=== PATIENT | male | born 1945 | race Caucasian/White ===

== ENCOUNTER 2025-09-08 17:16 | Inpatient (IN) | payer OTHER, SELFPAY ==
--- NOTE | ~2025-09-08 | US_ITS ---
EXAMINATION: BILATERAL CAROTID ULTRASOUND WITH DOPPLER HISTORY: Confirm carotid occlusion COMPARISON: Previous head and neck CTA September 08, 2025 TECHNIQUE: Real time and Color and Spectral doppler ultrasonography of the carotid and vertebral arteries was performed in multiple planes. FINDINGS: VERTEBRAL FLOW DIRECTION: No flow can be documented in the right vertebral artery. The left vertebral artery is patent with antegrade flow. PEAK SYSTOLIC VELOCITIES (in cm/sec): RIGHT: There is significant calcified plaque is seen at the right carotid bulb and proximal ICA. CCA: Prox: Peak systolic velocity 87 cm/s Dist: Peak systolic velocity 93 cm/s ICA: Prox: Peak systolic velocity 386 centimeters per second and end-diastolic velocity 82 cm/s Mid: Peak systolic velocity 176 cm/s and end-diastolic velocity 13.2 cm/s Dist: Peak systolic velocity 60 cm/s and end-diastolic velocity 21 cm/s. ICA/CCA Ratio: 4.2 ECA: Peak systolic velocity 220 cm/s. LEFT: Calcified plaque at the left carotid bulb and calcified and noncalcified plaque in the left proximal ICA and ECA CCA: Prox: Peak systolic velocity 73 cm/s Dist: Peak systolic velocity 101 cm/s ICA: Prox: Peak systolic velocity 117 and end-diastolic velocity 31 cm/s Mid: Peak systolic velocity 215 and end-diastolic velocity 50 cm/s Dist: Peak systolic velocity 94 and end-diastolic velocity 17 cm/s ICA/CCA Ratio: 1.2 ECA: Peak systolic velocity 355 cm/s Both subclavian arteries are patent with normal peak systolic velocities, 1 44 cm/s on the right and 1 27 cm/s on the left. US/US carotid duplex BI IMPRESSION: Right: Significant greater than 80% right ICA stenosis. Suspect occluded right vertebral artery. Left: Mild less than 50% left ICA stenosis. Left ECA stenosis. Patent left vertebral artery. Findings were communicated by tiger paulette to Dr. Rock 09/10/2025 at 5:00 PM Electronically signed by: Adalgisa Vaughan MD 09/10/2025 05:00 PM [facility]
--- NOTE | ~2025-09-08 | CT_ITS ---
CLINICAL HISTORY: visual field deficit, possible bleed CT head without contrast Comparison: None Findings: No intracranial mass, midline shift, hydrocephalus, or acute hemorrhage. There is cytotoxic edema involving left occipital lobe (2; 24-33, approaching fluid attenuation at 19 Hounsfield units), compatible with subacute infarct. No other CT evidence of acute ischemia. Mild chronic microangiopathic white matter ischemic changes are present.. Visualized paranasal sinuses and mastoid air cells normal. Orbits unremarkable. No skull fracture Impression: 1. Subacute appearing left occipital infarct as described above. 2. No other acute intracranial abnormalities or evidence of intracranial hemorrhage. This document has been electronically signed by: Darek Brown MD on 09/08/2025 17:52:51
--- NOTE | ~2025-09-08 | CT_ITS ---
CLINICAL HISTORY: vision changes Exam: Contrast-enhanced CTA head and neck with multiplanar reformats. Comparison: Same-day CT brain. Findings: CTA neck: There is good opacification of the bilateral anterior intracranial arterial circulations. Right vertebral artery is occluded from its origin up to the level of the distal V4 intradural segment which reveals reflux opacification from the left side, and opacifies the left PICA artery. This is as likely a chronic finding. The distal left posterior cerebral artery is attenuated at the level of the left ambient cistern (6; 331 -312). Otherwise good opacification of the posterior intracranial arterial circulation is present. No other large vessel occlusion or significant intracranial arterial stenoses. No other definable truncation of flow. No evidence of aneurysm or vascular malformation. No venous thrombosis or enhancing parenchymal lesions. CTA neck: Aortic arch reveals calcific athero sclerosis. There appears to be hemodynamically significant stenoses of the origin of the left common carotid artery from the aortic arch (for example, 6; 1125, also seen on 7; 113). More distally bilateral common carotid arteries are patent. There is severe appearing stenoses (likely 99%, versus short segmental occlusion) of the proximal right internal carotid artery (6; 750-715, also seen on 9; 29). No tandem right ICA stenoses. There is significant stenoses of the proximal left internal carotid artery, likely 60-70% severity (6; 714-685, also seen on 7; 98). No tandem left ICA stenoses appreciated. Left vertebral artery is patent. Right vertebral artery is occluded from its origin to the level of the distal V4 segment as described above. Visualized pulmonary apices reveal moderate centrilobular emphysematous disease. No neck masses or adenopathy. No destructive osseous lesions. Impression: 1. 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 This has likely a chronic finding. 2. Attenuation of the distal left posterior cerebral artery at the level of the left ambient cistern, in keeping with left occipital infarcts seen on same day CT brain. 3. 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 4. Hemodynamically significant appearing stenoses of the proximal left vertebral artery (likely 60-70% severity). This document has been electronically signed by: Darek Brown MD on 09/08/2025 18:19:40
[2025-09-08 17:18] VITALS: BP 153/130; PULSE 73; RESP 16; TEMP 36.7; O2SAT 98; BMI 24.2
--- NOTE | 2025-09-08 17:21 | ED.GENADULT ---
HPI - General Adult General Chief complaint: Neuro Symptoms/Deficit Stated complaint: severe headache, blurred vision Time Seen by Provider: 09/08/25 17:36 History of Present Illness ED Provider: Dr. Alvarado HPI narrative: 80 y/o M; PMH HTN, HLD; patient presents from home reporting approx 3 days of complete loss of vision in the right eye. Initially associated with a headache which has since resolved. He has also noticed poor balance during this time. He denies: falls or trauma, nausea/vomiting, SOB, cough/congestion, chest pain, abdominal pain. He tried taking advil and tylenol for the headache, then noticed dark stools. Related Data Allergies Allergy/AdvReac Type Severity Reaction Status Date / Time Penicillins Allergy Anaphylaxis Verified 09/08/25 17:24 Review of Systems Review of Systems: Yes all other systems are reviewed and are negative Neurologic: Denies Sensory deficit (Neuro) [facility] Past Medical History Attestation statement: The following information was validated with the patient. Source: unable to obtain Social History Social History Advance Directives: No Advance Directives Information Provided: Yes Do you have a plan to hurt others: No Plan Physical Exam ED Vital Signs: Vital Signs - 24 hr 09/08/25 17:18 09/08/25 18:00 Temperature 98.1 F 98.3 F Pulse Rate 73 61 Respiratory Rate 16 16 Blood Pressure 153/130 H 125/64 Pulse Oximetry 98 97 Oxygen Delivery Method Room Air Room Air BMI result Body Mass Index 24.2 Patient is afebrile, initially hypertensive but this resolved without intervention. Const General: cooperative and no acute distress Orientation/consciousness: patient oriented x3 HENMT Head: Yes normal to inspection and Yes atraumatic Eyes General: appearance normal, both eyes and all related structures Pupils: Equal, round and reactive pupils present EOM: EOMs intact bilaterally Neck Neck: Yes normal visual inspection, Yes full ROM, Yes supple and No tender Chest Chest palpation & inspection: normal inspection of the chest and normal palpation of entire chest wall Resp Effort & Inspection: normal respiratory effort, able to speak in complete sentences and no cough Auscultation: clear to auscultation bilaterally Cardio Rate: regular rate Rhythm: regular rhythm Peripheral pulses: Peripheral pulses 2+ throughout GI Inspection: Yes normal to inspection, No Abdominal wall edema and No distended Palpation (GI): Soft to palpation, not firm, nontender, no guarding and not rigid Auscultation: normal bowel sounds Back/Spine/Pelvis Back: No back tenderness Neuro Other: Complete loss of right visual puentes Intact left upper visual field Loss of left lower visual field Finger to nose right side with + past pointing Finger to nose left side intact General: patient oriented x3 Cranial nerves: Yes Equal, round and reactive pupils present Motor exam (neuro): 5/5 motor strength present throughout Sensory Exam: No Sensory deficit (Neuro) NIH Stroke Scale Internal: Initial- Upon Arrival Level of Consciousness: Alert Level of Consciousness Questions: Answers both questions correctly Level of Consciousness Commands: Performs both tasks correctly Best Gaze: Normal Visual: Complete hemianopia Facial Palsy: Normal Motor Arm (Right): No drift Motor Arm (Left): No drift Motor Leg (Right): No drift Motor Leg (Left): No drift Limb Ataxia: Absent Sensory: Normal Best Language: No aphasia Dysarthia: Normal Extinction and Inattention: No abnormality Score: 2 Course Course Course Narrative: Rapid medical examination performed in triage by Mehreen West PA-C: Patient is an 80 year old assigned male at presenting to the emergency department with visual deficit on the right side and dark stools. Patient states that over the last 3 days he has lost certain visual puentes on his right eye. 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 EKG, labs, and imaging ordered. [employer] aware. Reevaluation(s) Reevaluation #1: I was made aware of this patient after CT Head was performed, I requested addition of CTA Head/Neck which was added on. CT scans reviewed. CT Head demonstrates subacute left occipital infarct. CTA Head/Neck demonstrates occlusion of the right vertebral artery from its origin to the level of the distal V4 segment. Opacification of the right PICA. Patient started on protonix for concern for NSAID induced melena. NIHSS 2. Patient is unfortunately well outside TNK or thrombectomy window. Labs reviewed. Cr 2.02, unknown baseline. Providing 1L IVF. Hgb 12.4, unknown baseline. No significant leukocytosis. Will start on baby ASA. Plan: Admit to hospitalist Condition: Stable Medications Administered Discontinued Medications Generic Name Dose Route Start Last Admin Trade Name Freq PRN Reason Stop Dose Admin Iohexol 100 ml 09/08/25 17:50 09/08/25 17:51 Iohexol 350 Mg/Ml 100 Ml Infus..Btl IV 09/08/25 17:51 75 ml ONCE ONE Administration Medical Decision Making Lab Data 09/08/25 19:13 09/08/25 19:13 Labs: Lab Results 09/08/25 Range/Units 19:13 WBC 5.0 (4.8-10.8) X10*3/uL RBC 3.88 L (4.60-5.80) X10*6/uL Hgb 12.4 L (14.0-18.0) g/dl Hct 36.7 L (42.0-52.0) % MCV 94.6 (80.0-98.0) fL MCH 32.0 (27.0-33.0) pg MCHC 33.8 (31.0-36.0) g/dl RDW 13.6 (11.0-16.0) % Plt Count 116 L (160-400) X10*3/uL MPV 10.7 (9.4-12.4) fL Immature Gran % (Auto) 0.4 (0.0-0.4) % Neut % (Auto) 48.3 (45-73) % Lymph % (Auto) 38.4 (20-40) % [place] % (Auto) 10.5 (2-11) % Eos % (Auto) 1.8 (0-4) % Baso % (Auto) 0.6 (0-2) % Lymph # (Auto) 1.9 (1.2-4.9) X10*3/uL [place] # (Auto) 0.5 (0.1-1.2) X10*3/uL Eos # (Auto) 0.1 (0.0-0.4) X10*3/uL Baso # (Auto) 0.0 (0.0-0.2) X10*3/uL Abs Immat Gran (auto) 0.02 (0.00-0.03) X10*3/uL Absolute Neuts (auto) 2.4 (2.0-8.3) x10*3/uL Absolute Nucleated RBC 0.000 (0.0-0.012) X10*3/uL Nucleated RBC % (auto) 0.0 (0.0-0.2) /100WBC PT 13.2 (11.2-13.5) SEC INR 1.1 (0.9-1.1) Sodium 138 (135-145) mmol/L Potassium 5.0 (3.3-5.1) mmol/L Chloride 109 H (96-108) mmol/L Carbon Dioxide 21 L (22-29) mmol/L Anion Gap 13 (12-20) BUN 22 H (9-16) mg/dL Creatinine 2.02 H (0.5-1.4) mg/dL Estim Creat Clear Calc 31.4 Estimated GFR 32 Random Glucose 71 (60-115) mg/dL Calcium 9.0 (8.4-10.2) mg/dL Magnesium 2.2 (1.6-2.6) mg/dL Total Bilirubin 0.5 (0.0-1.0) mg/dL AST 23 (5-37) U/L ALT 15 (0-40) U/L Alkaline Phosphatase 45 (39-117) U/L Troponin I High Sens < 2.7 (<3.5-35.0) ng/L Total Protein 7.0 (6.5-8.0) g/dL Albumin 3.9 (3.5-5.0) g/dL Independent Interpretation I performed an independent interpretation of an: EKG Interpretation: I independently interpreted the EKG as NSR 66BPM with normal intervals. Radiology Impression Discussion of test interpretation with radiology: I have reviewed the radiologist's reading. Radiologist Impression: CLINICAL HISTORY: vision changes Exam: Contrast-enhanced CTA head and neck with multiplanar reformats. Comparison: Same-day CT brain. Findings: CTA neck: There is good opacification of the bilateral anterior intracranial arterial circulations. Right vertebral artery is occluded from its origin up to the level of the distal V4 intradural segment which reveals reflux opacification from the left side, and opacifies the left PICA artery. This is as likely a chronic finding. The distal left posterior cerebral artery is attenuated at the level of the left ambient cistern (6; 331 -312). Otherwise good opacification of the posterior intracranial arterial circulation is present. No other large vessel occlusion or significant intracranial arterial stenoses. No other definable truncation of flow. No evidence of aneurysm or vascular malformation. No venous thrombosis or enhancing parenchymal lesions. CTA neck: Aortic arch reveals calcific athero sclerosis. There appears to be hemodynamically significant stenoses of the origin of the left common carotid artery from the aortic arch (for example, 6; 1125, also seen on 7; 113). More distally bilateral common carotid arteries are patent. There is severe appearing stenoses (likely 99%, versus short segmental occlusion) of the proximal right internal carotid artery (6; 750-715, also seen on 9; 29). No tandem right ICA stenoses. There is significant stenoses of the proximal left internal carotid artery, likely 60-70% severity (6; 714-685, also seen on 7; 98). No tandem left ICA stenoses appreciated. Left vertebral artery is patent. Right vertebral artery is occluded from its origin to the level of the distal V4 segment as described above. Visualized pulmonary apices reveal moderate centrilobular emphysematous disease. No neck masses or adenopathy. No destructive osseous lesions. Impression: 1. 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 This has likely a chronic finding. 2. Attenuation of the distal left posterior cerebral artery at the level of the left ambient cistern, in keeping with left occipital infarcts seen on same day CT brain. 3. 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 4. Hemodynamically significant appearing stenoses of the proximal left vertebral artery (likely 60-70% severity). This document has been electronically signed by: Darek Brown MD on 09/08/2025 18:19:40 CLINICAL HISTORY: visual field deficit, possible bleed CT head without contrast Comparison: None Findings: No intracranial mass, midline shift, hydrocephalus, or acute hemorrhage. There is cytotoxic edema involving left occipital lobe (2; 24-33, approaching fluid attenuation at 19 Hounsfield units), compatible with subacute infarct. No other CT evidence of acute ischemia. Mild chronic microangiopathic white matter ischemic changes are present.. Visualized paranasal sinuses and mastoid air cells normal. Orbits unremarkable. No skull fracture Impression: 1. Subacute appearing left occipital infarct as described above. 2. No other acute intracranial abnormalities or evidence of intracranial hemorrhage. This document has been electronically signed by: Darek Brown MD on 09/08/2025 17:52:51 Discharge Plan Discharge Clinical Impression: Cerebrovascular accident Patient Disposition: Admitted As Inpatient Print Language: Korean
--- NOTE | 2025-09-08 17:23 | ECG_ITS ---
Test Reason : WEAKNESS Blood Pressure : */* mmHG Vent. Rate : 66 BPM Atrial Rate : 66 BPM P-R Int : 194 ms QRS Dur : 96 ms QT Int : 394 ms P-R-T Axes : 63 7 67 degrees QTcB Int : 413 ms Normal sinus rhythm Normal ECG No previous ECGs available Referred By: Mehreen West Electronically Signed By: DANY REN MD
[2025-09-08] MEDS: iohexoL 350 MG/ML 100 ML INFUS..BTL IV (17:51)
[2025-09-08 18:00] VITALS: BP 125/64; PULSE 61; RESP 16; TEMP 36.8; O2SAT 97
[2025-09-08 19:18] LABS: MANUAL DIFF FLAG NO
[2025-09-08 19:32] LABS: INTERNATIONAL NORM RATIO 1.1 (0.9-1.1); Prothrombin Time 13.2 SEC (11.2-13.5)
[2025-09-08 19:34] LABS: Alanine Aminotransferase 15 U/L (0-40); Albumin Level 3.9 g/dL (3.5-5.0); Alkaline Phosphatase 45 U/L (39-117); Anion Gap 13 (12-20); Aspartate Amino Transferase 23 U/L (5-37); Blood Urea Nitrogen 22 mg/dL (9-16); Calcium 9.0 mg/dL (8.4-10.2); Carbon Dioxide 21 mmol/L (22-29); Chloride 109 mmol/L (96-108); Creatinine Clr Calc Pharmacy 31.4; Estimated Glomerular Filt Rate 32; Magnesium 2.2 mg/dL (1.6-2.6); Potassium 5.0 mmol/L (3.3-5.1); Sodium 138 mmol/L (135-145); Total Protein 7.0 g/dL (6.5-8.0)
[2025-09-08 19:37] LABS: Hematocrit 36.7 % (42.0-52.0); Hemoglobin 12.4 g/dl (14.0-18.0); Imm Gran Abs Auto 0.02 X10*3/uL (0.00-0.03); Imm Gran Pct Auto 0.4 % (0.0-0.4); Lymphocytes Absolute Auto 1.9 X10*3/uL (1.2-4.9); Mean Corpuscular HGB Conc 33.8 g/dl (31.0-36.0); Mean Corpuscular Hemoglobin 32.0 pg (27.0-33.0); Mean Corpuscular Volume 94.6 fL (80.0-98.0); NRBC Abs Auto 0.000 X10*3/uL (0.0-0.012); NRBC Pct Auto 0.0 /100WBC (0.0-0.2); Platelet Count 116 X10*3/uL (160-400); Red Blood Count 3.88 X10*6/uL (4.60-5.80); White Blood Count 5.0 X10*3/uL (4.8-10.8)
[2025-09-08 19:41] LABS: Troponin-I High Sensitivity < 2.7 ng/L (<3.5-35.0)
[2025-09-08 20:08] VITALS: BP 150/64; PULSE 63; RESP 14; TEMP 36.9; O2SAT 96
--- NOTE | 2025-09-08 20:29 | PM.IMHP ---
History of Present Illness Date of Service: 09/08/25 Chief Complaint: Right partial vision loss, gait problem An 80-year-old man with a history of hypertension and hyperlipidemia, not on any antiplatelet or statin therapy, who presented reporting waking up over 48 hours ago with a severe left-sided headache, loss of vision in the right eye, and unsteady gait. No preceding trauma, nausea, vomiting, or focal weakness reported. 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 [facility] He uses a walker at home where he lives by himself but reports having much support there and does not want to go to SNF after this hospital stay. Initial imaging at presentation revealed a subacute left occipital infarct on CT head. CTA demonstrated occlusion of the right vertebral artery from its origin to the distal V4 segment with opacification of the right PICA, consistent with chronic changes. There were no findings suggestive of large vessel occlusion requiring acute intervention. On arrival, the patient was hypertensive, but blood pressure normalized without pharmacologic intervention. Labs notable for creatinine 2.02 mg/dL (baseline unknown). He received 1 L of IV fluids for renal protection following contrast administration. Aspirin was initiated for secondary stroke prevention. He remains hemodynamically stable, without worsening neurological deficits. Admitted for further evaluation and treatment. Review of Systems Review of Systems: No fever, chills or weakness No chest pain, palpitation No shortness of breath or coughing No abdominal pain, nausea or vomiting No urinary symptoms No any rash or wounds PMFSH Medical History HLD (hyperlipidemia) HTN (hypertension) Social History Advance Directives: No Advance Directives Information Provided: Yes Do you have a plan to hurt others: No Plan Meds Allergies Allergy/AdvReac Type Severity Reaction Status Date / Time Penicillins Allergy Anaphylaxis Verified 09/08/25 17:24 Active Medications: Current Medications Sodium Chloride (Ns) 1,000 mls @ 999 mls/hr IV .Q1H1M GHASSAN Stop: 09/08/25 20:45 Last Admin: 09/08/25 20:00 Dose: 999 mls/hr Physical Exam Vital Signs and Narrative: Vital Signs: Last Vital Signs Temp 98.4 F 09/08/25 20:08 Pulse 63 09/08/25 20:08 Resp 14 09/08/25 20:08 BP 150/64 H 09/08/25 20:08 Pulse Ox 96 09/08/25 20:08 O2 Del Method Room Air 09/08/25 20:08 BMI result Body Mass Index 24.2 Const: Other: Constitutional : Awake, interactive, not in distress Neck : Normal inspection, Supple Cardiovascular : RRR, no JVP, no lower extremity edema Respiratory : good bilateral air entry, no crackles, wheezes or rhonchi Gastrointestinal: soft, lax, Normal bowel sounds, Non tender Skin : Warm, Dry Neurological : Alert & oriented x3, CN 2-12 within normal, vision loss Lateral upper quaderent right eye, mildly weaker right leg (reports hip surgery), downward babinski Results Labs 09/08/25 19:13 09/08/25 19:13 Labs: Laboratory Results - last 24 hr 09/08/25 19:13 MCV 94.6 MCH 32.0 MCHC 33.8 RDW 13.6 Plt Count 116 L MPV 10.7 Immature Gran % (Auto) 0.4 Neut % (Auto) 48.3 Lymph % (Auto) 38.4 [place] % (Auto) 10.5 Eos % (Auto) 1.8 Baso % (Auto) 0.6 Lymph # (Auto) 1.9 [place] # (Auto) 0.5 Eos # (Auto) 0.1 Baso # (Auto) 0.0 Abs Immat Gran (auto) 0.02 Absolute Neuts (auto) 2.4 Absolute Nucleated RBC 0.000 Nucleated RBC % (auto) 0.0 PT 13.2 INR 1.1 Anion Gap 13 Estim Creat Clear Calc 31.4 Estimated GFR 32 Random Glucose 71 Calcium 9.0 Magnesium 2.2 Total Bilirubin 0.5 AST 23 ALT 15 Alkaline Phosphatase 45 Troponin I High Sens < 2.7 Total Protein 7.0 Albumin 3.9 Assessment and Plan (1) Acute stroke due to ischemia: Status: Acute (2) Sudden visual loss, right eye: Status: Acute Plan An 80-year-old man with a history of hypertension and hyperlipidemia, not on any antiplatelet or statin therapy, who presented reporting waking up over 48 hours ago with a severe left-sided headache, loss of vision in the right eye, and unsteady gait. No preceding trauma, nausea, vomiting, or focal weakness reported. Acute ischemic stroke EKG showing sinus rhythm CT CTA Started baby ASA and Atorvastatin for 2ndry prevention get an Echo BP stable; monitor closely and target SBP <130 Neurochecks Q4 Stroke education Lipid profile in morning bedside swallow eval Neurology consult PT\OT evaluation Glaucoma Left eye continue home eye drops DVT PPx Lovenox Pending Med Rec. Code status: Full code The patient will need at least 2 overnight hospital stay for management of acute\subacute stroke pending neurology evaluation , PT\OT. Quality Stroke Does the patient have a stroke diagnosis?: Yes Reason for No Anti-thrombotic by Day Two: N/A - Med Ordered VTE Prior VTE?: No VTE Risk Level:: Medical - moderate - high VTE Device Contraindication: Treatment Not Indicated VTE Drug Contraindication: N/A - Med Ordered
[2025-09-08] MEDS: Lidocaine 4 % Patch ADH..PATCH 1 PATCH TRANSDERMA (21:11)
--- NOTE | 2025-09-08 21:33 | PHA.MEDREC ---
Addendum entered by Alysa Enriquez RPh 09/08/25 21:49: REVIEWED BY PHARMACIST Original Note: Pharmacy Consult ? Medication Reconciliation Pharmacy has completed the medication reconciliation. Utilized list from [facility].
[2025-09-08 23:55] VITALS: BP 149/64; PULSE 72; RESP 18; TEMP 36.8; O2SAT 97
[2025-09-09] VITALS (7 sets, daily range): BP systolic 116–189; BP diastolic 60–85; PULSE 61–74; RESP 16–18; TEMP 36.4–37.1; O2SAT 93–97
--- NOTE | 2025-09-09 00:09 | MHC.EDTECH ---
This tech took over care of pt at 2300, rounds and vitals completed, pt placed in hospital bed for comfort,high risk precautions placed,bed alarm on for safety, emptied 300MLS of yellow urine from urinal, call joseph in reach
--- NOTE | 2025-09-09 00:35 | MHC.EDTECH ---
Patient placed in hospital bed for comfort,bed alarm on for safety,call joseph in reach
[2025-09-09 04:29] LABS: Hematocrit 36.5 % (42.0-52.0); Hemoglobin 12.4 g/dl (14.0-18.0); Mean Corpuscular HGB Conc 34.0 g/dl (31.0-36.0); Mean Corpuscular Hemoglobin 31.7 pg (27.0-33.0); Mean Corpuscular Volume 93.4 fL (80.0-98.0); NRBC Abs Auto 0.000 X10*3/uL (0.0-0.012); NRBC Pct Auto 0.0 /100WBC (0.0-0.2); Platelet Count 101 X10*3/uL (160-400); Red Blood Count 3.91 X10*6/uL (4.60-5.80); White Blood Count 5.1 X10*3/uL (4.8-10.8)
[2025-09-09 04:41] LABS: Anion Gap 12 (12-20); Blood Urea Nitrogen 22 mg/dL (9-16); Calcium 8.6 mg/dL (8.4-10.2); Carbon Dioxide 19 mmol/L (22-29); Chloride 113 mmol/L (96-108); Creatinine Clr Calc Pharmacy 36.9; Estimated Glomerular Filt Rate 38; Potassium 4.3 mmol/L (3.3-5.1); Sodium 140 mmol/L (135-145)
[2025-09-09 04:42] LABS: Cholesterol 214 mg/dL (<200); HDL Cholesterol 25 mg/dL (>40); Triglycerides 294 mg/dL (<150)
--- NOTE | 2025-09-09 07:00 | CA_ITS ---
Transthoracic Echocardiogram Patient (Last, First, Middle): Andrews Stubbs Francis Gender: Male Date of : 1945 Age: 80 Procedure Date: 09/09/2025 Procedure Type: Transthoracic Echocardiogram Location: ER Height: 182.88 cm Weight: 80.74 kg BSA: 2.03 m2 Heart Rate: 60 bpm BP: 162 / 67 mmHg Core Java Engineer: ANA PAULA Referring MD: Priscila Nur MD Sole Tier: Josué Antony MD Symptoms: acute stroke Study Quality: Adequate ECG Rhythm: Sinus Conclusions: - 1. Normal LV ejection fraction 55-60% with impaired relaxation filling pattern 2. Calcific aortic and mitral valve changes noted with normal cardiac valvular Dopplers 3. Normal RV systolic pressure 4. No gross pericardial effusion Findings Left Ventricle Normal left ventricular size, thickness, and systolic function. The visually estimated ejection fraction is between 55-60%. Spectral Doppler is indicative of an impaired relaxation filling pattern. E/E prime ratio is between 8 and 15 consistent with indeterminate filling pressures. Right Ventricle Normal right ventricular cavity size and systolic function. Atria Both atria are normal in size. There is no evidence of interatrial shunt. Aortic Valve There is mild calcification of the aortic valve. There is no aortic valve stenosis. There is no aortic valve regurgitation. Mitral Valve There is mild anterior and posterior mitral leaflet thickening. There is mild mitral annular calcification. There is trace mitral valve regurgitation. There is no mitral valve stenosis. Pulmonic Valve The pulmonic valve was not well visualized. Tricuspid Valve Likely normal tricuspid valve structure and function. There is mild tricuspid valve regurgitation. The right ventricular systolic pressure is normal. The right ventricular systolic pressure is 34 mmHg. Normal right atrial pressure. There is no evidence of pulmonary hypertension. Great Vessels The pulmonary artery was not well visualized. There is no dilatation of the ascending aorta measuring 3.40 cm. Venous The inferior vena cava is normal in size and collapses greater than 50% with inspiration. Pericardium/Pleural There is no evidence of pericardial effusion. Prior Study Comparison No prior study available for comparison. Measurements 2D Linear Measurements IVSd: 0.74 0.6-0.9/0.6-1.0 cm LVIDd: 4.94 3.9-5.3/4.2-5.9 cm LVIDd Index: 2.43 2.4-3.2/2.2-3.1 cm/m2 LVIDs: 3.30 2.0-3.6 cm LVPWd: 0.64 0.7-1.1 cm LA Diam: 3.60 2.7-3.8/3.0-4.0 cm LAIDs Index: 1.77 1.5-2.3 cm/m2 LV Mass: 137.16 67-162/88-224 g LV Mass Index: 67.57 43-95/49-115 g/m2 LVOT Diam: 2.30 3.0+(-)1.3 cm 2D Systolic Function EF 4C: 58.40 >55% EF 2C: 57.10 >55% EF BiP: 58.50 >55% Mitral Valve MV Pk E: 0.82 MV PK A: 0.89 MV Decel Time: 222.00 E/A: 0.90 E'Lateral: 6.20 E'Medial: 5.55 E/E' Med: 14.70 E/E' Lat: 13.20 PHT: 65.00 MVA PHT: 3.38 Decel Sau[place]: 3.69 Aortic Valve AoV Pk Thanh: 1.34 AoV Pk Grad: 7.00 JEREMY: 2.99 LVOT LVOT Pk Thanh: 0.97 LVOT Mn Thanh: 0.63 LVOT VTI: 0.22 LVOT Pk Grad: 4.00 LVOT Mn Grad: 2.00 LVOT Diam: 2.30 LVOT Area: 4.15 Diastolic Function MV Pk E: 0.82 MV Pk A: 0.89 E/A: 0.90 E'Medial: 5.55 E/E' Med: 14.70 E' Laterial: 6.20 E/E' Lat: 13.20 Right Ventricle TAPSE (mm): 20.90 TVS' Thanh: 12.00 Tricuspid Valve TR Pk Thanh: 2.54 TR Pk Grad: 26.00 RA Press: 8.00 RVSP: 34.00 Great Vessels Aorta Sinus of Valsalva: 3.40 2.0-3.5 cm Ao Asc: 3.40 2.1-3.4 cm Pulmonary Veins Pulm Vein S/D 1.10 Pulmonary Valve PV Pk Thanh: 0.75 Peak PV Grad: 2.00 Updated in Other Vendor System with Status of Final Josué Antony MD electronically signed on 09/09/2025 11:30:47 AM with status of Final
--- NOTE | 2025-09-09 07:17 | HO.PM.IMPN ---
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, decreased right-sided peripheral vision Awaiting stroke workup-TTE Physical Exam Vital Signs: Vital Signs: Last Vital Signs Temp 97.5 F 09/09/25 04:00 Pulse 61 09/09/25 04:00 Resp 18 09/09/25 04:00 BP 116/85 09/09/25 04:00 Pulse Ox 97 09/09/25 04:00 O2 Del Method Room Air 09/09/25 04:00 BMI result Body Mass Index 24.2 Objective Data Active Medications Acetaminophen (Acetaminophen 325 Mg Tablet) 650 mg PO Q6H PRN PRN Reason: Pain, Mild 1-3,fever,headache Aspirin (Aspirin Enteric Coated 81 Mg Tablet.Dr) 81 mg PO DAILY [facility] Atorvastatin Calcium (Atorvastatin Calcium 40 Mg Tablet) 40 mg PO BEDTIME [facility] Last Admin: 09/08/25 21:40 Dose: 40 mg Documented By: SAHARA Calcium Carbonate (Calcium Carbonate 750 Mg Tab.Chew) 750 mg PO Q4H PRN PRN Reason: Heartburn Dorzolamide HCl (Dorzolamide Hcl 2 % Ophth Mary 10 Ml Drpbtl) 1 drop EYE-BOTH BID [facility] Last Admin: 09/08/25 23:27 Dose: 1 drop Documented By: SAHARA Enoxaparin Sodium (Enoxaparin Sodium 40 Mg/0.4 Ml Syringe) 40 mg SUBCUT Q24H [facility] Last Admin: 09/08/25 21:11 Dose: 40 mg Documented By: SAHARA Lisinopril (Lisinopril 10 Mg Tablet) 30 mg PO DAILY [facility]; Protocol Magnesium Hydroxide (Milk Of Magnesia 30 Ml Oral.Susp) 30 ml PO DAILY PRN PRN Reason: Constipation Meclizine HCl (Meclizine Hcl 25 Mg Tablet) 25 mg PO BID [facility] Melatonin (Melatonin 3 Mg Tablet) 6 mg PO BEDTIME PRN PRN Reason: Insomnia Ondansetron HCl (Ondansetron Hcl 4 Mg/2 Ml Vial) 4 mg IVPUSH Q8H PRN PRN Reason: Nausea and Vomiting Sodium Chloride (0.9 % Sodium Chloride Flush 3 Ml Syringe) 3 ml IVFLUSH QSHIFT [facility] Last Admin: 09/09/25 01:39 Dose: Not Given Documented By: SAHARA Non-Admin Reason: Patient Asleep Labs 09/09/25 04:16 09/09/25 04:16 Labs: Laboratory Results - last 24 hr 09/08/25 09/09/25 19:13 04:16 MCV 94.6 93.4 MCH 32.0 31.7 MCHC 33.8 34.0 RDW 13.6 13.3 Plt Count 116 L 101 L MPV 10.7 10.9 Immature Gran % (Auto) 0.4 Neut % (Auto) 48.3 Lymph % (Auto) 38.4 [place] % (Auto) 10.5 Eos % (Auto) 1.8 Baso % (Auto) 0.6 Lymph # (Auto) 1.9 [place] # (Auto) 0.5 Eos # (Auto) 0.1 Baso # (Auto) 0.0 Abs Immat Gran (auto) 0.02 Absolute Neuts (auto) 2.4 Absolute Nucleated RBC 0.000 0.000 Nucleated RBC % (auto) 0.0 0.0 PT 13.2 INR 1.1 Anion Gap 13 12 Estim Creat Clear Calc 31.4 36.9 Estimated GFR 32 38 Random Glucose 71 94 Calcium 9.0 8.6 Magnesium 2.2 Total Bilirubin 0.5 AST 23 ALT 15 Alkaline Phosphatase 45 Troponin I High Sens < 2.7 Total Protein 7.0 Albumin 3.9 Triglycerides 294 H Cholesterol 214 H LDL Cholesterol, Calc 131 H HDL Cholesterol 25 L Assessment and Plan (1) Sudden visual loss, right eye: Status: Acute Plan Pt is a 80-year-old man with a history of hypertension and hyperlipidemia, not on any antiplatelet or statin therapy, who presented > 48 hours after waking with a severe left-sided headache, loss of vision in the right eye, and unsteady gait. Was noted to have subacute ischemic infarct of the left occipital lobe in the posterior cerebral artery distribution, out of the window. Patient has bilateral right greater than left carotid artery stenosis-vascular consult placed. #Acute ischemic stroke causing Acute onset headache, loss of vision in the right eye and unsteady gait-likely secondary to subacute ischemic infarct in the left occipital lobe in the posterior cerebral artery distribution Imaging suggestive of subacute ischemic infarct in the left occipital lobe in the posterior cerebral artery distribution in a patient with hypertension, hyperlipidemia who is not on antiplatelet or statin. 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 [facility] He uses a walker at home where he lives by himself, and does not want to go to SNF after this hospital stay. Initial imaging revealed a subacute left occipital infarct on CT head. 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 There were no findings suggestive of large vessel occlusion requiring acute intervention Plan Continue DAPT aspirin and Plavix for 6 weeks followed by aspirin alone Increase statin to 80 mg daily We will slowly bring down the patient's blood pressure to prevent ischemic insult TTE done we will need to be followed Troponin Telemetry Check electrolytes PT Patient refusing STR placement if indicated #Severe right carotid stenosis #Left vertebral stenosis 60-70% Patient appears to have longstanding carotid stenosis Vascular consult placed Likely we will need #Hypertensive urgency Patient was noted to have headache at home that he could not relieve himself and tried taking Tylenol Motrin without any relief. His headache is also suggestive of uncontrolled hypotension We will try to titrate his medications to achieve normotension, we will reduce SBP by 20-30% daily Hyperlipidemia-increase statins to 80 mg This note is constructed using voice recognition software. While every effort has been made to ensure accuracy, information writer errors may have been included. Disposition patient likely will be discharged in a day or 2 after cardiac workup for stroke and medical optimization for hypertensive urgency, also needs vascular input Quality Stroke Does the patient have a stroke diagnosis?: Yes Reason for No Anti-thrombotic by Day Two: N/A - Med Ordered VTE Prior VTE?: No VTE Risk Level:: Medical - moderate - high VTE Device Contraindication: Treatment Not Indicated VTE Drug Contraindication: N/A - Med Ordered
[2025-09-09] MEDS: Aspirin Enteric Coated 81 MG TABLET.DR PO (08:43)
[2025-09-09] MEDS: Dorzolamide HCl 2 % Ophth Sol 10 ML DRPBTL 1 DROP EYE-BOTH ×2 (08:43→21:18)
--- NOTE | 2025-09-09 08:43 | P.CNNE_ITS ---
History of Present Illness Data of Consult Service Date: 09/09/25 Primary Care Provider: Ethan Swan MD [facility] Reason for consult: visual disturbance and loss of balance This is a 80-year-old man with a history of hypertension and hyperlipidemia, not on any antiplatelet or statin therapy, who presented > 48 hours after waking with a severe left-sided headache, loss of vision in the right eye, and unsteady gait. No preceding trauma, nausea, vomiting, or focal weakness reported. 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 [facility] He uses a walker at home where he lives by himself, and does not want to go to SNF after this hospital stay. Initial imaging revealed a subacute left occipital infarct on CT head. 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 There were no findings suggestive of large vessel occlusion requiring acute intervention. On arrival, the patient was hypertensive, but blood pressure normalized without pharmacologic intervention. Labs notable for creatinine 2.02 mg/dL (baseline unknown). Aspirin was initiated for secondary stroke prevention.He remains hemodynamically stable, without worsening neurological deficits. He feels that his balance is now back to normal and he walked to the bathroom using a walker. The vision is unchanged with no vision on the right side PMFSH Past Medical History Medical History HLD (hyperlipidemia) HTN (hypertension) Social History Social History Household Members: None Housing: Apartment Do you presently have visiting nurse or other home services: No Patient Tobacco Use Status: Former Tobacco user Smoked in Last 30 Days: No Use of substances other than those prescribed or required for medical reasons: No Advance Directives: No Advance Directives Information Provided: Yes Do you have a plan to hurt others: No Plan Recently lost weight without trying: No Nutrition Risks: No Nutritional Risk Poor oral hygiene: No Meds Allergies Allergy/AdvReac Type Severity Reaction Status Date / Time Penicillins Allergy Anaphylaxis Verified 09/08/25 17:24 Active Medications: Current Medications Acetaminophen (Acetaminophen 325 Mg Tablet) 650 mg PO Q6H PRN PRN Reason: Pain, Mild 1-3,fever,headache Aspirin (Aspirin Enteric Coated 81 Mg Tablet.Dr) 81 mg PO DAILY [facility] Atorvastatin Calcium (Atorvastatin Calcium 40 Mg Tablet) 40 mg PO BEDTIME [facility] Last Admin: 09/08/25 21:40 Dose: 40 mg Calcium Carbonate (Calcium Carbonate 750 Mg Tab.Chew) 750 mg PO Q4H PRN PRN Reason: Heartburn Dorzolamide HCl (Dorzolamide Hcl 2 % Ophth Mary 10 Ml Drpbtl) 1 drop EYE-BOTH BID [facility] Last Admin: 09/08/25 23:27 Dose: 1 drop Enoxaparin Sodium (Enoxaparin Sodium 40 Mg/0.4 Ml Syringe) 40 mg SUBCUT Q24H [facility] Last Admin: 09/08/25 21:11 Dose: 40 mg Lisinopril (Lisinopril 10 Mg Tablet) 30 mg PO DAILY [facility]; Protocol Magnesium Hydroxide (Milk Of Magnesia 30 Ml Oral.Susp) 30 ml PO DAILY PRN PRN Reason: Constipation Meclizine HCl (Meclizine Hcl 25 Mg Tablet) 25 mg PO BID [facility] Melatonin (Melatonin 3 Mg Tablet) 6 mg PO BEDTIME PRN PRN Reason: Insomnia Ondansetron HCl (Ondansetron Hcl 4 Mg/2 Ml Vial) 4 mg IVPUSH Q8H PRN PRN Reason: Nausea and Vomiting Sodium Chloride (0.9 % Sodium Chloride Flush 3 Ml Syringe) 3 ml IVFLUSH QSHIFT [facility] Last Admin: 09/09/25 01:39 Dose: Not Given Home Medications ?Medication ?Instructions ?Recorded ?Confirmed ?Last Taken ?Type amlodipine 5 mg tablet 5 mg PO DAILY 09/08/2509/08 Unknown History calcium carbonate 500 mg PO BEDTIME 09/08/25 1 11/08/24 Unknown History dorzolamide 2 % eye drops 1 drp ophthalmic (eye) BID 1 11/08/24 09/08/25 Unknown History fluticasone propionate 50 1 spray intranasal BID 09/0809/08/25 Unknown History mcg/actuation nasal spray,suspension ketoconazole 2 % shampoo 1 appl topical 3XW 09/08/25 09/08/25 Unknown History lisinopril 30 mg tablet 30 mg PO DAILY 09/08/2508/30 Unknown History meclizine 25 mg tablet 25 mg PO BID Vertigo 5 09/08/25 Unknown History Physical Exam 2 Vital Signs: Vital Signs: Last Vital Signs Temp 97.5 F 09/09/25 04:00 Pulse 61 09/09/25 04:00 Resp 18 09/09/25 04:00 BP 116/85 09/09/25 04:00 Pulse Ox 97 09/09/25 04:00 O2 Del Method Room Air 09/09/25 04:00 BMI result Body Mass Index 24.2 Neuro: Other: He is alert and oriented with normal intellectual functions. Speech and language functions are normal. He is blind in the left eye with only light perception. In the right eye he has a right visual field defect that is split down the middle but can see on the left side. There is no facial asymmetry or droop. Muscle tone and strength are normal in all 4 extremities. Reflexes are hypoactive 0 to 1+ plantar responses are flexor. Coordination is normal. Results Labs 09/09/25 04:16 09/09/25 04:16 Labs: Short CBC 09/08/25 09/09/25 Range/Units 19:13 04:16 WBC 5.0 5.1 (4.8-10.8) X10*3/uL Hgb 12.4 L 12.4 L (14.0-18.0) g/dl Hct 36.7 L 36.5 L (42.0-52.0) % Plt Count 116 L 101 L (160-400) X10*3/uL BMP 09/08/25 09/09/25 19:13 04:16 Sodium 138 140 Potassium 5.0 4.3 Chloride 109 H 113 H Carbon Dioxide 21 L 19 L BUN 22 H 22 H Creatinine 2.02 H 1.72 H Calcium 9.0 8.6 Liver Function 09/08/25 Range/Units 19:13 Total Bilirubin 0.5 (0.0-1.0) mg/dL AST 23 (5-37) U/L ALT 15 (0-40) U/L Alkaline Phosphatase 45 (39-117) U/L Albumin 3.9 (3.5-5.0) g/dL Assessment and Plan (1) Acute stroke due to ischemia: Status: Acute Plan Subacute ischemic infarct of the left occipital lobe in the posterior cerebral artery distribution that occurred more than 48 hours prior to patient presenting to the emergency room therefore he was not a candidate for clot lysis or intervention. He has been stable. CTA findings are reported above. Recommendation control of blood pressure 2. Atorvastatin 80 mg a day. Aspirin 81 mg a day and clopidogrel 75 mg a day. Outpatient vascular surgery evaluation for right internal carotid artery stenosis. OT evaluation and education on how to deal with his right visual field deficit Procedures Date of Service Date of Service: 09/09/25
[2025-09-09] MEDS: 0.9 % Sodium Chloride Flush 3 ML SYRINGE IVFLUSH ×3 (08:44→21:20)
--- NOTE | 2025-09-09 11:11 | MHC.CM.PN ---
CM met with Patient at bedside, in the ED. Patient lives alone in an apartment and he may benefit from a PT Eval to assist with disposition. CM has initiated and will follow for dc planning.Patient's Daughter/HCP/Analia will transport to home at dc.
--- NOTE | 2025-09-09 11:29 | MHC.STROKE ---
Met with patient in room 12. Pt awake, alert and oriented x 4. Echo just completed. Pt states that he presented to ED after vision change in right eye. Unfortunately symptoms started days before he presented to ED. Stroke/TIA education reviewed with patient. Pamphlet provided. All questions answered. We discussed in detail patient's medical history, social history, medications, activity and diet. Pt reports history of HTN and reports that he couldn't tolerate statin medications in the past. Plan of care discussed with patient. All questions answered. Will continue to assist as needed.
--- NOTE | 2025-09-09 16:26 | HO.NURTONUR ---
Pt arrived c/o L sided DANGELO, loss of vision in R eye, and unsteady gait. Denies trauma/falls. Hx glaucoma and can not see much (L eye; legally blind): can see hand shadow close to his eye. Stoke alert, CT shows subacute left occipital infarct on CT head. CTA demonstrated occlusion of the right vertebral artery from its origin to the distal V4 segment with opacification of the right PICA, consistent with chronic changes. There were no findings suggestive of large vessel occlusion requiring acute intervention. Creat elevated@2.02 mg/dL (baseline unknown), given 1L NS and ASA. Ambulates x1 assist w/cane, aaox4, q4h neuro checks.
[2025-09-10 03:15] VITALS: BP 139/68; PULSE 71; RESP 16; TEMP 36.5; O2SAT 95
[2025-09-10 07:09] VITALS: BP 143/64; PULSE 65; RESP 18; TEMP 36.4; O2SAT 97
--- NOTE | 2025-09-10 07:16 | P.PNIM_ITS ---
Subjective Subjective Date of Service: 09/10/25 Physical Exam 2 Vital Signs: Vital Signs: Last Vital Signs Temp 97.5 F 09/10/25 07:09 Pulse 65 09/10/25 07:09 Resp 18 09/10/25 07:09 BP 143/64 H 09/10/25 07:09 Pulse Ox 97 09/10/25 07:09 O2 Del Method Room Air 09/10/25 07:09 BMI result Body Mass Index 24.2 Objective Data Active Medications Acetaminophen (Acetaminophen 325 Mg Tablet) 650 mg PO Q6H PRN PRN Reason: Pain, Mild 1-3,fever,headache Aspirin (Aspirin Enteric Coated 81 Mg Tablet.) 81 mg PO DAILY [facility] Last Admin: 09/09/25 08:43 Dose: 81 mg Documented By: LUZ Atorvastatin Calcium (Atorvastatin Calcium 80 Mg Tablet) 80 mg PO BEDTIME [facility] Last Admin: 09/09/25 21:16 Dose: 80 mg Documented By: KANDY Calcium Carbonate (Calcium Carbonate 750 Mg Tab.Chew) 750 mg PO Q4H PRN PRN Reason: Heartburn Clopidogrel Bisulfate (Clopidogrel Bisulfate 75 Mg Tablet) 75 mg PO DAILY [facility] Dorzolamide HCl (Dorzolamide Hcl 2 % Ophth Mary 10 Ml Drpbtl) 1 drop EYE-BOTH BID [facility] Last Admin: 09/09/25 21:18 Dose: 1 drop Documented By: KANDY Enoxaparin Sodium (Enoxaparin Sodium 40 Mg/0.4 Ml Syringe) 40 mg SUBCUT Q24H [facility] Last Admin: 09/09/25 21:16 Dose: 40 mg Documented By: KANDY Lisinopril (Lisinopril 10 Mg Tablet) 30 mg PO DAILY [facility]; Protocol Last Admin: 09/09/25 08:43 Dose: 30 mg Documented By: LUZ Magnesium Hydroxide (Milk Of Magnesia 30 Ml Oral.Susp) 30 ml PO DAILY PRN PRN Reason: Constipation Meclizine HCl (Meclizine Hcl 25 Mg Tablet) 25 mg PO BID [facility] Last Admin: 09/09/25 21:16 Dose: 25 mg Documented By: KANDY Melatonin (Melatonin 3 Mg Tablet) 6 mg PO BEDTIME PRN PRN Reason: Insomnia Ondansetron HCl (Ondansetron Hcl 4 Mg/2 Ml Vial) 4 mg IVPUSH Q8H PRN PRN Reason: Nausea and Vomiting Sodium Chloride (0.9 % Sodium Chloride Flush 3 Ml Syringe) 3 ml IVFLUSH QSHIFT [facility] Last Admin: 09/09/25 21:20 Dose: 3 ml Documented By: KANDY Labs 09/09/25 04:16 09/09/25 04:16 Quality Stroke Does the patient have a stroke diagnosis?: Yes Reason for No Anti-thrombotic by Day Two: N/A - Med Ordered VTE Prior VTE?: No VTE Risk Level:: Medical - moderate - high VTE Device Contraindication: Treatment Not Indicated VTE Drug Contraindication: N/A - Med Ordered
[2025-09-10] MEDS: Aspirin Enteric Coated 81 MG TABLET.DR PO (08:27)
[2025-09-10] MEDS: 0.9 % Sodium Chloride Flush 3 ML SYRINGE IVFLUSH ×2 (08:29→21:20)
[2025-09-10] MEDS: Dorzolamide HCl 2 % Ophth Sol 10 ML DRPBTL 1 DROP EYE-BOTH ×2 (08:30→21:16)
--- NOTE | 2025-09-10 09:33 | PM.CNGS ---
History of Present Illness Consult details Consult date: 09/10/25 Reason for consult: other (Carotid stenosis with stroke) Narrative: Complex 80-year-old gentleman presented to the emergency room with visual loss. He reports that he had lost vision in his left eye nearly 3 years ago. On the right side he reports some floaters along with lateral visual field deficit. He now has more central vision that has come back over the last day or so. He has not known about any carotid disease in the past. All new to him. Quit smoking about 30 years ago prior to that he was smoking about half a pack to a pack a day. CT scan demonstrated left sub occipital subacute infarct. He had undergone CT angiogram of the carotids. He now presents to us for vascular evaluation. Review of Systems Review of Systems: Yes all other systems are reviewed and are negative Constitutional: Constitutional: Reports no additional constitutional complaints ENT: Reports Normal hearing present Cardiovascular: Cardiovascular: Denies chest pain, Denies chest pain at rest, Denies chest pain with activity and Denies pedal edema Respiratory: Respiratory: Denies cough Gastrointestinal: Gastrointestinal: Denies abdominal pain Musculoskeletal: Musculoskeletal: Denies abnormal gait, Denies muscle cramps and Denies radiating pain into limb Integumentary/Breasts: Skin/Breast: Denies skin ulcer and Denies wounds Neurologic: Reports Normal hearing present and Denies abnormal gait Psychiatric: Psychiatric: Reports no additional psychiatric complaints PMFSH Past Medical History Medical History HLD (hyperlipidemia) HTN (hypertension) Social History Social History Household Members: None Housing: Apartment Do you presently have visiting nurse or other home services: No Patient Tobacco Use Status: Former Tobacco user service: Yes Meds Allergies Allergy/AdvReac Type Severity Reaction Status Date / Time Penicillins Allergy Anaphylaxis Verified 09/08/25 17:24 Active Medications: Current Medications Acetaminophen (Acetaminophen 325 Mg Tablet) 650 mg PO Q6H PRN PRN Reason: Pain, Mild 1-3,fever,headache Aspirin (Aspirin Enteric Coated 81 Mg Tablet.) 81 mg PO DAILY [facility] Last Admin: 09/10/25 08:27 Dose: 81 mg Atorvastatin Calcium (Atorvastatin Calcium 80 Mg Tablet) 80 mg PO BEDTIME [facility] Last Admin: 09/09/25 21:16 Dose: 80 mg Calcium Carbonate (Calcium Carbonate 750 Mg Tab.Chew) 750 mg PO Q4H PRN PRN Reason: Heartburn Clopidogrel Bisulfate (Clopidogrel Bisulfate 75 Mg Tablet) 75 mg PO DAILY [facility] Last Admin: 09/10/25 08:27 Dose: 75 mg Dorzolamide HCl (Dorzolamide Hcl 2 % Ophth Mary 10 Ml Drpbtl) 1 drop EYE-BOTH BID [facility] Last Admin: 09/10/25 08:30 Dose: 1 drop Enoxaparin Sodium (Enoxaparin Sodium 40 Mg/0.4 Ml Syringe) 40 mg SUBCUT Q24H [facility] Last Admin: 09/09/25 21:16 Dose: 40 mg Lisinopril (Lisinopril 10 Mg Tablet) 30 mg PO DAILY [facility]; Protocol Last Admin: 09/10/25 08:27 Dose: 30 mg Magnesium Hydroxide (Milk Of Magnesia 30 Ml Oral.Susp) 30 ml PO DAILY PRN PRN Reason: Constipation Meclizine HCl (Meclizine Hcl 25 Mg Tablet) 25 mg PO BID [facility] Last Admin: 09/10/25 08:27 Dose: 25 mg Melatonin (Melatonin 3 Mg Tablet) 6 mg PO BEDTIME PRN PRN Reason: Insomnia Ondansetron HCl (Ondansetron Hcl 4 Mg/2 Ml Vial) 4 mg IVPUSH Q8H PRN PRN Reason: Nausea and Vomiting Sodium Chloride (0.9 % Sodium Chloride Flush 3 Ml Syringe) 3 ml IVFLUSH QSHIFT [facility] Last Admin: 09/10/25 08:29 Dose: 3 ml Home Medications ?Medication ?Instructions ?Recorded ?Confirmed ?Last Taken ?Type amlodipine 5 mg tablet 5 mg PO DAILY 09/08/25 09/08/25 Unknown History calcium carbonate 500 mg PO BEDTIME 09/08/25 09/08/25 Unknown History dorzolamide 2 % eye drops 1 drp ophthalmic (eye) BID 09/08/25 09/08/25 Unknown History fluticasone propionate 50 1 spray intranasal BID 09/08/25 09/08/25 Unknown History mcg/actuation nasal spray,suspension ketoconazole 2 % shampoo 1 appl topical 3XW 09/08/25 09/08/25 Unknown History lisinopril 30 mg tablet 30 mg PO DAILY 09/08/25 09/08/25 Unknown History meclizine 25 mg tablet 25 mg PO BID [facility] 09/08/25 09/08/25 Unknown History Physical Exam Vital Signs: Vital Signs: Last Vital Signs Temp 97.5 F 09/10/25 07:09 Pulse 65 09/10/25 07:09 Resp 18 09/10/25 07:09 BP 143/64 H 09/10/25 07:09 Pulse Ox 97 09/10/25 07:09 O2 Del Method Room Air 09/10/25 07:09 BMI result Body Mass Index 24.2 Const: General: cooperative, healthy appearing and comfortable Orientation/consciousness: oriented to person, oriented to place and oriented to time HEENT: Head: Yes normal to inspection Eyes: Other: Obvious visual field deficits Neck: Neck: Yes normal visual inspection Carotids: no bruits Chest: Chest palpation & inspection: normal inspection of the chest Resp: Effort & Inspection: normal respiratory effort and able to speak in complete sentences Auscultation: clear to auscultation bilaterally, no crackles, no rales, no rhonchi and no wheezes Cardio: Rate: regular rate Rhythm: regular rhythm Heart sounds: S1 normal heart sound present and S2 normal heart sound present Bruits: no carotid bruits Peripheral pulses: Peripheral pulses 2+ throughout GI: Inspection: Yes normal to inspection Skin: Wounds: no wounds Hair: normal Neuro: General: oriented to person, oriented to place and oriented to time Cranial nerves: Yes CN's II-XII intact bilaterally and Yes Normal hearing present Cognition (Neuro): normal cognition Motor exam (neuro): 5/5 motor strength present throughout Extrem: Other: venous exam: No significant superficial varicosities or spider telangiectasias, minimal edema General: No clubbing, No cyanosis and No edema Psych: Appearance: grossly normal Mental Status: mental status grossly normal Speech and movement: Normal speech and movement present Results Labs 09/09/25 04:16 09/09/25 04:16 Labs: All other labs normal. Imaging Additional studies: CT head left occipital subacute infarct . CT angiogram of the carotids demonstrate left side 60-70% right side near occlusive disease. 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 I did review CT angiogram and the concern is the right near total occlusion. I have taken the liberty of ordering an ultrasound to confirm that there is no flow in total occlusion. Echo was appreciated. We will require cardiac risk stratification. If stable will require left carotid endarterectomy which can be scheduled as an outpatient ideally within 2-4 weeks of discharge to prevent recurrent stroke. Maintain patient on aspirin and high-dose statin. Thank you for allowing us to assist in his care. If there are any questions or concerns please do not hesitate to contact us. Procedures Date of Service Date of Service: 09/10/25
[2025-09-10 11:12] VITALS: BP 120/60; PULSE 69; RESP 20; TEMP 36.4; O2SAT 96
--- NOTE | 2025-09-10 12:41 | W.PM.OPN ---
Operative Note Operative Note Date of Service: 09/10/25
--- NOTE | 2025-09-10 14:04 | MHC.CM.PN ---
Addendum entered by Ruthie Bishop 09/10/25 15:18: Planned dc for today has been canceled. CM will follow. Original Note: Patient has been medically cleared for dc to home today, self care.
--- NOTE | 2025-09-10 14:16 | PM.DS ---
DS: Providers Provider Date of Service: 09/10/25 Date of admission: 09/08/25 20:26 Date of discharge: 09/10/25 Primary care physician: Ethan Swan MD Consults: 09/08/25 20:28 Consult to Neurology Routine Consulting Provider: [facility] Reason for consultation: Acute stroke 09/09/25 19:22 Consult to Vascular Surgery Routine Consulting Provider: [facility] [place] [facility] Reason for consultation: Very severe stenoses or short segmental occlusion of the proximal right 09/10/25 09:38 Consult to Cardiology Routine Consulting Provider: [facility] Reason for consultation: Preop eval for carotid endarterectomy Has provider been notified: No DS: Diagnosis Discharge Diagnosis (1) 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: Status: Acute DS: Summary Hospital Course Hospital Course: #Acute ischemic stroke causing Acute onset headache, loss of vision in the right eye and unsteady gait-likely secondary to subacute ischemic infarct in the left occipital lobe in the posterior cerebral artery distribution #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 Was noted to have subacute ischemic infarct of the left occipital lobe in the posterior cerebral artery distribution, out of the window. Patient has bilateral right greater than left carotid artery stenosis At baseline, he has history of left eye glaucoma and can not see much (legally blind) in the left eye. [facility] He uses a walker at home where he lives by himself, and does not want to go to SNF after this hospital stay. Initial imaging revealed a subacute left occipital infarct on CT head. 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 He was initiated on DAPT aspirin and Plavix for 6 weeks (up to the end of September 2025) followed by aspirin alone , since he was statin naive statin was also initiated for secondary prevention of stroke. His blood pressure was high at around 170s and 180s for which we slowly decreased it to maintain normotension with up titrating his amlodipine with good effect. Further medical management for his hypotension to be done by the PCP. TTE unremarkable, troponinemia negative monitored on telemetry, electrolytes were checked. PT was evaluated the patient and he did not need any services. 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 Carotid ultrasound was ordered by vascular surgery, given limited resources we are unable to do that inpatient. Vascular surgery would like cardiac clearance prior to surgery, would be requested through outpatient management. #Hypertensive urgency Patient was noted to have headache at home that he could not relieve himself and tried taking Tylenol Motrin without any relief. His headache is also suggestive of uncontrolled hypotension I have increased his amlodipine to 10 mg, continued lisinopril 30 mg daily, further medication needs to be adjusted by the primary care as the patient was normotensive with this medication. Hyperlipidemia-increase statins to 80 mg We wanted to get carotid ultrasound and cardiac clearance while inpatient however limited resources and staffing issues have prompted us to get this done outpatient settings. This note is constructed using voice recognition software. While every effort has been made to ensure accuracy, cable repairer errors may have been included. Unintentional errors might have escaped proof reading, please do not hesitate to reach out for any further questions or concerns. Time spent discussing smoking cessation with patient: more than 10 minutes Status at Discharge Functional status at discharge: uses cane/walker Overall status at discharge: patient is back to baseline Time Attestation Discharge Coordination Time (in mins): 55 Quality: Safe Use of Opioids Does Pt have an Active Cancer Diagnosis on the Problem List?: No Quality: Stroke Does the patient have a stroke diagnosis?: Yes Reason for No Anti-thrombotic at DC: N/A - Med Ordered Reason for No Anticoagulant at DC: Drug treatment not indicated Reason Not Initiating IV-Tpa: Drug treatment not indicated Reason for No Anti-thrombotic by Day Two: N/A - Med Ordered Reason for No Statin at DC: N/A - Med Ordered Physical Exam Vital Signs: Vital Signs: Last Vital Signs Temp 97.5 F 09/10/25 11:12 Pulse 69 09/10/25 11:12 Resp 20 09/10/25 11:12 BP 120/60 09/10/25 11:12 Pulse Ox 96 09/10/25 11:12 O2 Del Method Room Air 09/10/25 11:12 BMI result Body Mass Index 24.2 Const: General: cooperative, healthy appearing and comfortable Orientation/consciousness: oriented to person, oriented to place and oriented to time HEENT: Head: Yes normal to inspection Eyes: Other: Obvious visual field deficits Neck: Neck: Yes normal visual inspection Carotids: no bruits Chest: Chest palpation & inspection: normal inspection of the chest Resp: Effort & Inspection: normal respiratory effort and able to speak in complete sentences Auscultation: clear to auscultation bilaterally, no crackles, no rales, no rhonchi and no wheezes Cardio: Rate: regular rate Rhythm: regular rhythm Heart sounds: S1 normal heart sound present and S2 normal heart sound present Bruits: no carotid bruits Peripheral pulses: Peripheral pulses 2+ throughout GI: Inspection: Yes normal to inspection Skin: Wounds: no wounds Hair: normal Neuro: General: oriented to person, oriented to place and oriented to time Cranial nerves: Yes CN's II-XII intact bilaterally and Yes Normal hearing present Cognition (Neuro): normal cognition Motor exam (neuro): 5/5 motor strength present throughout Extrem: Other: venous exam: No significant superficial varicosities or spider telangiectasias, minimal edema General: No clubbing, No cyanosis and No edema Psych: Appearance: grossly normal Mental Status: mental status grossly normal Speech and movement: Normal speech and movement present Discharge Plan Discharge Anticipated Discharge Date/Time: 09/10/25 13:53 Patient Disposition: Home, Self-Care Discharge Diagnosis: Acute subacute ischemic infarct in the left occipital lobe in the posterior cerebral artery distribution Referrals: Glenn Falcon MD [Physician, Neurology] - 1 Week Dane Rock MD [Physician, Vascular Surgery] - 1 Week Josué Antony MD [Physician, Cardiology] - 1 Week Ethan Swan MD [Primary Care Provider, Internal Medicine] - 1 Week Discharge Medications: New clopidogrel 75 mg Tablet 75 mg PO DAILY 30 Days Qty: 30 3RF aspirin 81 mg Tablet,Delayed Release (Dr/Ec) 81 mg PO DAILY 30 Days Qty: 30 0RF atorvastatin 80 mg Tablet 80 mg PO BEDTIME 30 Days Qty: 30 3RF Continued ketoconazole 2 % Shampoo 1 appl TOPICAL 3XW amlodipine 5 mg Tablet 5 mg PO DAILY calcium carbonate 500 mg calcium (1,250 mg) Tablet 500 mg PO BEDTIME meclizine 25 mg Tablet 25 mg PO BID lisinopril 30 mg Tablet 30 mg PO DAILY fluticasone propionate 50 mcg/actuation [place],Suspension 1 spray INTRANASAL BID Rx Instructions: administer into each nostril dorzolamide 2 % Drops 1 drp OPHTHALMIC (EYE) BID Discharge Orders: Discharge Order (Routine); Ordered 09/10/25 Ordered By: Tasneem Blount Diet: Low salt diet Activity on Discharge: As tolerated Stand Alone Forms: Patient Portal Discharge page Print Language: Cambodian Care Plan Goals: Follow-up with outpatient Cardiology for cardiac clearance for your vascular surgery-carotid endarterectomy Follow up with vascular surgery outpatient in 2-3 weeks Follow up with PCP We have initiated aspirin and Plavix along with statin for secondary prevention of stroke Follow-up with outpatient PT You have severe right carotid stenosis which requires operative management for which we consulted vascular surgery and you will be seeing him in 2-3 weeks in outpatient settings Placed take your medications as prescribed-we have increased her medication amlodipine to 10 mg and your blood pressure was better on this medication. New medications this hospitalization : Aspirin 81 mg once a day Plavix 75 mg once a day orally Atorvastatin 80 mg once a day Amlodipine has been increased to 10 mg daily from 5 mg home dose Continue taking your other medications for other medical conditions Health Concerns: See above Plan of Treatment: See above Assessment: See above
--- NOTE | 2025-09-10 14:48 | P.PNIM_ITS ---
Subjective Subjective Date of Service: 09/10/25 Interval History: Patient deemed that he would benefit from carotid ultrasound and cardiac workup prior to discharge in hence this discharge has been canceled for today He will get a carotid ultrasound tomorrow He will get cardiac preop workup by bar steward tomorrow Review of Systems Review of Systems: Yes all other systems are reviewed and are negative ENT Ears, Nose, Mouth, and Throat: Reports Normal hearing present Neurologic Neurologic: Reports Normal hearing present Physical Exam 2 Vital Signs: Vital Signs: Last Vital Signs Temp 97.5 F 09/10/25 11:12 Pulse 69 09/10/25 11:12 Resp 20 09/10/25 11:12 BP 120/60 09/10/25 11:12 Pulse Ox 96 09/10/25 11:12 O2 Del Method Room Air 09/10/25 11:12 BMI result Body Mass Index 24.2 Const: General: cooperative, healthy appearing and comfortable O rientation/consciousness: oriented to person, oriented to place and oriented to time HEENT: Head: Yes normal to inspection Eyes: Other: Obvious visual field deficits Neck: Neck: Yes normal visual inspection Carotids: no bruits Chest: Chest palpation & inspection: normal inspection of the chest Resp: Effort & Inspection: normal respiratory effort and able to speak in complete sentences Auscultation: clear to auscultation bilaterally, no crackles, no rales, no rhonchi and no wheezes Cardio: Rate: regular rate Rhythm: regular rhythm Heart sounds: S1 normal heart sound present and S2 normal heart sound present Bruits: no carotid bruits Peripheral pulses: Peripheral pulses 2+ throughout GI: Inspection: Yes normal to inspection Skin: Wounds: no wounds Hair: normal Neuro: General: oriented to person, oriented to place and oriented to time Cranial nerves: Yes CN's II-XII intact bilaterally and Yes Normal hearing present Cognition (Neuro): normal cognition Motor exam (neuro): 5/5 motor strength present throughout Extrem: Other: venous exam: No significant superficial varicosities or spider telangiectasias, minimal edema General: No clubbing, No cyanosis and No edema Psych: Appearance: grossly normal Mental Status: mental status grossly normal Speech and movement: Normal speech and movement present Objective Data Active Medications Acetaminophen (Acetaminophen 325 Mg Tablet) 650 mg PO Q6H PRN PRN Reason: Pain, Mild 1-3,fever,headache Aspirin (Aspirin Enteric Coated 81 Mg Tablet.Dr) 81 mg PO DAILY [facility] Last Admin: 09/10/25 08:27 Dose: 81 mg Documented By: DEYSI Atorvastatin Calcium (Atorvastatin Calcium 80 Mg Tablet) 80 mg PO BEDTIME [facility] Last Admin: 09/09/25 21:16 Dose: 80 mg Documented By: KANDY Calcium Carbonate (Calcium Carbonate 750 Mg Tab.Chew) 750 mg PO Q4H PRN PRN Reason: Heartburn Clopidogrel Bisulfate (Clopidogrel Bisulfate 75 Mg Tablet) 75 mg PO DAILY [facility] Last Admin: 09/10/25 08:27 Dose: 75 mg Documented By: DEYSI Dorzolamide HCl (Dorzolamide Hcl 2 % Ophth Mary 10 Ml Drpbtl) 1 drop EYE-BOTH BID [facility] Last Admin: 09/10/25 08:30 Dose: 1 drop Documented By: DEYSI Enoxaparin Sodium (Enoxaparin Sodium 40 Mg/0.4 Ml Syringe) 40 mg SUBCUT Q24H [facility] Last Admin: 09/09/25 21:16 Dose: 40 mg Documented By: KANDY Lisinopril (Lisinopril 10 Mg Tablet) 30 mg PO DAILY [facility]; Protocol Last Admin: 09/10/25 08:27 Dose: 30 mg Documented By: DEYSI Magnesium Hydroxide (Milk Of Magnesia 30 Ml Oral.Susp) 30 ml PO DAILY PRN PRN Reason: Constipation Meclizine HCl (Meclizine Hcl 25 Mg Tablet) 25 mg PO BID [facility] Last Admin: 09/10/25 08:27 Dose: 25 mg Documented By: DEYSI Melatonin (Melatonin 3 Mg Tablet) 6 mg PO BEDTIME PRN PRN Reason: Insomnia Ondansetron HCl (Ondansetron Hcl 4 Mg/2 Ml Vial) 4 mg IVPUSH Q8H PRN PRN Reason: Nausea and Vomiting Sodium Chloride (0.9 % Sodium Chloride Flush 3 Ml Syringe) 3 ml IVFLUSH QSHIFT [facility] Last Admin: 09/10/25 08:29 Dose: 3 ml Documented By: DEYSI Labs 09/09/25 04:16 09/09/25 04:16 Assessment and Plan (1) Sudden visual loss, right eye: Status: Acute Plan #Acute ischemic stroke causing Acute onset headache, loss of vision in the right eye and unsteady gait-likely secondary to subacute ischemic infarct in the left occipital lobe in the posterior cerebral artery distribution #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 Was noted to have subacute ischemic infarct of the left occipital lobe in the posterior cerebral artery distribution, out of the window. Patient has bilateral right greater than left carotid artery stenosis At baseline, he has history of left eye glaucoma and can not see much (legally blind) in the left eye. [facility] He uses a walker at home where he lives by himself, and does not want to go to SNF after this hospital stay. Initial imaging revealed a subacute left occipital infarct on CT head. 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 He was initiated on DAPT aspirin and Plavix for 6 weeks (up to the end of September 2025) followed by aspirin alone , since he was statin naive statin was also initiated for secondary prevention of stroke. His blood pressure was high at around 170s and 180s for which we slowly decreased it to maintain normotension with up titrating his amlodipine with good effect. Further medical management for his hypotension to be done by the PCP. TTE unremarkable, troponinemia negative monitored on telemetry, electrolytes were checked. PT was evaluated the patient and he did not need any services. 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 Carotid ultrasound was ordered by vascular surgery, given limited resources we are unable to do that inpatient. Vascular surgery would like cardiac clearance prior to surgery, would be requested through outpatient management. #Hypertensive urgency Patient was noted to have headache at home that he could not relieve himself and tried taking Tylenol Motrin without any relief. His headache is also suggestive of uncontrolled hypotension I have increased his amlodipine to 10 mg, continued lisinopril 30 mg daily, further medication needs to be adjusted by the primary care as the patient was normotensive with this medication. Hyperlipidemia-increase statins to 80 mg Patient would benefit from getting cardiac workup and carotid ultrasound which we will attempt tomorrow-limited resources. Medically optimized otherwise. This note is constructed using voice recognition software. While every effort has been made to ensure accuracy, aerial hurricane hunter errors may have been included. Unintentional errors might have escaped proof reading, please do not hesitate to reach out for any further questions or concerns. Quality Stroke Does the patient have a stroke diagnosis?: Yes Reason for No Anti-thrombotic by Day Two: N/A - Med Ordered VTE Prior VTE?: No VTE Risk Level:: Medical - moderate - high VTE Device Contraindication: Treatment Not Indicated VTE Drug Contraindication: N/A - Med Ordered
[2025-09-10 15:45] VITALS: BP 149/68; PULSE 79; RESP 18; TEMP 36; O2SAT 95
[2025-09-10 19:01] VITALS: BP 168/77; PULSE 75; RESP 18; TEMP 36.6; O2SAT 95
[2025-09-10 23:48] VITALS: BP 144/59; PULSE 72; RESP 16; TEMP 36.9; O2SAT 94
[2025-09-11 03:57] VITALS: BP 139/64; PULSE 66; RESP 16; TEMP 36.9; O2SAT 97
--- NOTE | 2025-09-11 07:14 | HO.PM.IMPN ---
Subjective Subjective Date of Service: 09/11/25 Physical Exam Vital Signs: Vital Signs: Last Vital Signs Temp 98.4 F 09/11/25 03:57 Pulse 66 09/11/25 03:57 Resp 16 09/11/25 03:57 BP 139/64 09/11/25 03:57 Pulse Ox 97 09/11/25 03:57 O2 Del Method Room Air 09/11/25 03:57 BMI result Body Mass Index 24.2 Objective Data Active Medications Acetaminophen (Acetaminophen 325 Mg Tablet) 650 mg PO Q6H PRN PRN Reason: Pain, Mild 1-3,fever,headache Aspirin (Aspirin Enteric Coated 81 Mg Tablet.Dr) 81 mg PO DAILY [facility] Last Admin: 09/10/25 08:27 Dose: 81 mg Documented By: DEYSI Atorvastatin Calcium (Atorvastatin Calcium 80 Mg Tablet) 80 mg PO BEDTIME [facility] Last Admin: 09/10/25 21:15 Dose: 80 mg Documented By: ELIUD Calcium Carbonate (Calcium Carbonate 750 Mg Tab.Chew) 750 mg PO Q4H PRN PRN Reason: Heartburn Clopidogrel Bisulfate (Clopidogrel Bisulfate 75 Mg Tablet) 75 mg PO DAILY [facility] Last Admin: 09/10/25 08:27 Dose: 75 mg Documented By: DEYSI Dorzolamide HCl (Dorzolamide Hcl 2 % Ophth Mary 10 Ml Drpbtl) 1 drop EYE-BOTH BID [facility] Last Admin: 09/10/25 21:16 Dose: 1 drop Documented By: ELIUD Enoxaparin Sodium (Enoxaparin Sodium 40 Mg/0.4 Ml Syringe) 40 mg SUBCUT Q24H [facility] Last Admin: 09/10/25 21:16 Dose: 40 mg Documented By: ELIUD Lisinopril (Lisinopril 10 Mg Tablet) 30 mg PO DAILY [facility]; Protocol Last Admin: 09/10/25 08:27 Dose: 30 mg Documented By: DEYSI Magnesium Hydroxide (Milk Of Magnesia 30 Ml Oral.Susp) 30 ml PO DAILY PRN PRN Reason: Constipation Meclizine HCl (Meclizine Hcl 25 Mg Tablet) 25 mg PO BID [facility] Last Admin: 09/10/25 21:15 Dose: 25 mg Documented By: ELIUD Melatonin (Melatonin 3 Mg Tablet) 6 mg PO BEDTIME PRN PRN Reason: Insomnia Ondansetron HCl (Ondansetron Hcl 4 Mg/2 Ml Vial) 4 mg IVPUSH Q8H PRN PRN Reason: Nausea and Vomiting Sodium Chloride (0.9 % Sodium Chloride Flush 3 Ml Syringe) 3 ml IVFLUSH QSHIFT [facility] Last Admin: 09/10/25 21:20 Dose: 3 ml Documented By: ELIUD Labs 09/09/25 04:16 09/09/25 04:16 Quality Stroke Does the patient have a stroke diagnosis?: Yes Reason for No Anti-thrombotic by Day Two: N/A - Med Ordered VTE Prior VTE?: No VTE Risk Level:: Medical - moderate - high VTE Device Contraindication: Treatment Not Indicated VTE Drug Contraindication: N/A - Med Ordered
[2025-09-11 07:20] VITALS: BP 153/57; PULSE 60; RESP 18; TEMP 36.4; O2SAT 96
[2025-09-11] MEDS: Aspirin Enteric Coated 81 MG TABLET.DR PO (08:42)
[2025-09-11] MEDS: Dorzolamide HCl 2 % Ophth Sol 10 ML DRPBTL 1 DROP EYE-BOTH (08:44)
[2025-09-11] MEDS: 0.9 % Sodium Chloride Flush 3 ML SYRINGE IVFLUSH (09:46)
--- NOTE | 2025-09-11 10:33 | MHC.CM.PN ---
Patient has been medically cleared for dc to home today, self care.
--- NOTE | 2025-09-11 11:06 | P.CONCA_ITS ---
History of Present Illness History of Present Illness Date of Service: 09/11/25 Requesting physician: Tasneem Blount Consult reason: pre-op evaluation Chief complaint: Gait problem, vision loss Narrative: I was consulted to see Andrews in cardiology consultation today for preoperative evaluation for carotid surgery. Patient presented to the hospital with headache and because of the way his headache started his daughter spoke to the primary care physician advised him to come to the emergency room. In the emergency room he was noted to have subacute left hemispheric CVA and subsequent workup showed carotid disease. He had a carotid duplex done today which showed 50% stenosis in the left ICA, no mentioned of the character of the plaque and has significant obstruction in the right carotid artery which is possibly critically stenosed. Patient has no right hemispheric in salt recently. Patient planned to undergo after discussing vascular for right carotid endarterectomy. Patient is limited in activity level and walks with a walker. He has never had any prior cardiac issues. He denies any prior myocardial infarction. He does have history of hypertension which is well controlled as per him. He denies any recent heart failure symptoms. He had an echocardiogram which shows normal LV ejection fraction with calcific aortic and mitral valve changes noted without any significant valvular abnormalities. Review of Systems 2 Constitutional: Constitutional: Reports no additional constitutional complaints Eyes: Eyes: Reports loss of vision (Right eye on the lateral aspect) Cardiovascular: Cardiovascular: Reports no additional cardiovascular complaints Respiratory: Respiratory: Reports no additional respiratory complaints Neurologic: Reports loss of vision (Right eye on the lateral aspect) [facility] Past Medical History Medical History HLD (hyperlipidemia) HTN (hypertension) Social History Social History Household Members: None Housing: Apartment Do you presently have visiting nurse or other home services: No Patient Tobacco Use Status: Former Tobacco user service: Yes Meds Allergies Allergy/AdvReac Type Severity Reaction Status Date / Time Penicillins Allergy Anaphylaxis Verified 09/08/25 17:24 Active Medications: Current Medications Acetaminophen (Acetaminophen 325 Mg Tablet) 650 mg PO Q6H PRN PRN Reason: Pain, Mild 1-3,fever,headache Aspirin (Aspirin Enteric Coated 81 Mg Tablet.) 81 mg PO DAILY [facility] Last Admin: 09/11/25 08:42 Dose: 81 mg Atorvastatin Calcium (Atorvastatin Calcium 80 Mg Tablet) 80 mg PO BEDTIME [facility] Last Admin: 09/10/25 21:15 Dose: 80 mg Calcium Carbonate (Calcium Carbonate 750 Mg Tab.Chew) 750 mg PO Q4H PRN PRN Reason: Heartburn Clopidogrel Bisulfate (Clopidogrel Bisulfate 75 Mg Tablet) 75 mg PO DAILY [facility] Last Admin: 09/11/25 08:43 Dose: 75 mg Dorzolamide HCl (Dorzolamide Hcl 2 % Ophth Mary 10 Ml Drpbtl) 1 drop EYE-BOTH BID [facility] Last Admin: 09/11/25 08:44 Dose: 1 drop Enoxaparin Sodium (Enoxaparin Sodium 40 Mg/0.4 Ml Syringe) 40 mg SUBCUT Q24H [facility] Last Admin: 09/10/25 21:16 Dose: 40 mg Lisinopril (Lisinopril 10 Mg Tablet) 30 mg PO DAILY [facility]; Protocol Last Admin: 09/11/25 08:42 Dose: 30 mg Magnesium Hydroxide (Milk Of Magnesia 30 Ml Oral.Susp) 30 ml PO DAILY PRN PRN Reason: Constipation Meclizine HCl (Meclizine Hcl 25 Mg Tablet) 25 mg PO BID [facility] Last Admin: 09/11/25 08:43 Dose: 25 mg Melatonin (Melatonin 3 Mg Tablet) 6 mg PO BEDTIME PRN PRN Reason: Insomnia Ondansetron HCl (Ondansetron Hcl 4 Mg/2 Ml Vial) 4 mg IVPUSH Q8H PRN PRN Reason: Nausea and Vomiting Sodium Chloride (0.9 % Sodium Chloride Flush 3 Ml Syringe) 3 ml IVFLUSH QSHIFT [facility] Last Admin: 09/11/25 09:46 Dose: 3 ml Home Medications ?Medication ?Instructions ?Recorded ?Confirmed ?Last Taken ?Type amlodipine 5 mg tablet 5 mg PO DAILY 09/08/2509/08 Unknown History calcium carbonate 500 mg PO BEDTIME 09/08/25 1 11/08/24 Unknown History dorzolamide 2 % eye drops 1 drp ophthalmic (eye) BID 1 11/08/24 09/08/25 Unknown History fluticasone propionate 50 1 spray intranasal BID 09/0809/08/25 Unknown History mcg/actuation nasal spray,suspension ketoconazole 2 % shampoo 1 appl topical 3XW 09/08/25 09/08/25 Unknown History lisinopril 30 mg tablet 30 mg PO DAILY 09/08/2508/30 Unknown History meclizine 25 mg tablet 25 mg PO BID [facility] 5 09/08/25 Unknown History Physical Exam 2 Vital Signs: Vital Signs: Last Vital Signs Temp 97.6 F 09/11/25 07:20 Pulse 60 09/11/25 07:20 Resp 18 09/11/25 07:20 BP 153/57 H 09/11/25 07:20 Pulse Ox 96 09/11/25 07:20 O2 Del Method Room Air 09/11/25 07:20 BMI result Body Mass Index 24.2 Const: General: cooperative, comfortable, no acute distress, alert and awake Nutritional Appearance: average body habitus Orientation/consciousness: p atient oriented x3 HEENT: Head: Yes normocephalic and Yes atraumatic Neck: Neck: Yes trachea midline, Yes supple and Yes no JVD Resp: Effort & Inspection: normal respiratory effort Auscultation: clear to auscultation bilaterally Cardio: Jugular venous distension: no JVD Palpation: normal PMI Rate: r egular rate Rhythm: regular rhythm Heart sounds: S1 normal heart sound present, S2 normal heart sound present, no click, no gallops and Murmur heart sound present systolic early Skin: General skin exam: no rashes or lesions noted Neuro: General: patient oriented x3 and no focal motor deficits Extrem: General: Yes no clubbing, cyanosis or edema Psych: Appearance: grossly normal Objective Labs and Meds 09/09/25 04:16 09/09/25 04:16 Imaging Radiologist's impression: Impressions Carotid Doppler Study 09/10/25 14:54 IMPRESSION: Right: Significant greater than 80% right ICA stenosis. Suspect occluded right vertebral artery. Left: Mild less than 50% left ICA stenosis. Left ECA stenosis. Patent left vertebral artery. Findings were communicated by tiger paulette to Dr. Rock 09/10/2025 at 5:00 PM Electronically signed by: Adalgisa Vaughan MD 09/10/2025 05:00 PM [facility] Assessment and Plan (1) Preoperative cardiovascular examination: Status: Acute Urgent preoperative cardiovascular risk stratification requested on this patient to undergo right carotid endarterectomy which is a control lateral artery to his current stroke. Patient has no active cardiac symptoms although has significant risk factors given his age and hypertension underlying carotid disease to have obstructive coronary artery disease that could be asymptomatic given his overall limited functionality. Given the risk of surgery I would suggest him to undergo evaluation with myocardial perfusion imaging to assess for asymptomatic significant myocardial ischemia that may affect the risk of surgery. This was discussed with him. Will schedule him for outpatient dobutamine stress myocardial perfusion imaging, although timing of surgery needs to be determined and need to be recommended by Neurology. Meanwhile he has ipsilateral 50% stenosis in the left carotid artery which could represent asymptomatic plaque. Question needs to have surgery on the left side. I would agree with the aggressive risk factor modification agree with high-intensity statin therapy. He is currently on dual antiplatelet therapy which I agree with as well. Continue blood pressure control. Will sign of the case. Thank you for allowing me to partake in his care Procedures Date of Service Date of Service: 09/11/25
[2025-09-11 11:12] VITALS: BP 117/56; PULSE 88; RESP 18; TEMP 37; O2SAT 97
--- NOTE | 2025-09-11 11:15 | HO.VASCPN ---
Subjective Subjective Date of Service: 09/11/25 Patient reports: no new complaints and feels better Interval history: Very pleasant 80-year-old gentleman for follow-up regarding carotid disease. This morning and significantly better spirits. Sitting up in a chair relatively comfortable. He has undergone ultrasound evaluation. In addition we are awaiting cardiology evaluation. Physical Exam Vital Signs: Vital Signs: Last Vital Signs Temp 98.6 F 09/11/25 11:12 Pulse 88 09/11/25 11:12 Resp 18 09/11/25 11:12 BP 117/56 L 09/11/25 11:12 Pulse Ox 97 09/11/25 11:12 O2 Del Method Room Air 09/11/25 11:12 BMI result Body Mass Index 24.2 Const: General: cooperative, healthy appearing and comfortable Orientation/consciousness: oriented to person, oriented to place and oriented to time HEENT: Head: Yes normal to inspection Neck: Neck: Yes normal visual inspection Carotids: no bruits Chest: Chest palpation & inspection: normal inspection of the chest Resp: Effort & Inspection: normal respiratory effort and able to speak in complete sentences Auscultation: clear to auscultation bilaterally, no crackles, no rales, no rhonchi and no wheezes Cardio: Rate: regular rate Rhythm: regular rhythm Heart sounds: S1 normal heart sound present and S2 normal heart sound present Bruits: no carotid bruits Peripheral pulses: Peripheral pulses 2+ throughout GI: Inspection: Yes normal to inspection Skin: Wounds: no wounds Hair: normal Neuro: General: oriented to person, oriented to place and oriented to time Cranial nerves: Yes CN's II-XII intact bilaterally and Yes Normal hearing present Cognition (Neuro): normal cognition Motor exam (neuro): 5/5 motor strength present throughout Extrem: Other: venous exam: No significant superficial varicosities or spider telangiectasias, minimal edema General: No clubbing, No cyanosis and No edema Psych: Appearance: grossly normal Mental Status: mental status grossly normal Speech and movement: Normal speech and movement present Progress Note: A&P Assessment and plan (1) 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 This is near occlusive. Ultrasound does confirm flow in the right carotid. Written report and images were reviewed. Patient did have left occipital lobe infarct he appears to be doing relatively well in terms of his stroke. Would recommend aspirin Plavix and high-dose statin. Due to the high-grade stenosis would like to get him into surgery within the next 2 weeks. We will await for the acute left-sided stroke to resolve. Will await cardiology evaluation. Stable from my perspective for discharge after that. Thank you for allowing us to assist in his care. If there are any questions or concerns please do not hesitate to contact us. Time Spent With Patient Time: Total time managing care of this patient today ____ minutes. Procedures Date of Service Date of Service: 09/11/25 Quality Stroke Does the patient have a stroke diagnosis?: Yes Reason for No Anti-thrombotic by Day Two: N/A - Med Ordered VTE Prior VTE?: No VTE Risk Level:: Medical - moderate - high VTE Device Contraindication: Treatment Not Indicated VTE Drug Contraindication: N/A - Med Ordered
--- NOTE | 2025-09-11 11:36 | PM.DS ---
DS: Providers Provider Date of Service: 09/11/25 Date of admission: 09/08/25 20:26 Date of discharge: 09/11/25 Primary care physician: Ethan Swan MD Consults: 09/08/25 20:28 Consult to Neurology Routine Consulting Provider: [facility] Reason for consultation: Acute stroke 09/09/25 19:22 Consult to Vascular Surgery Routine Consulting Provider: [facility] Reason for consultation: Very severe stenoses or short segmental occlusion of the proximal right 09/10/25 09:38 Consult to Cardiology Routine Consulting Provider: [facility] Reason for consultation: Preop eval for carotid endarterectomy Has provider been notified: No DS: Diagnosis Discharge Diagnosis (1) 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: Status: Acute (2) Preoperative cardiovascular examination: Status: Acute DS: Summary Hospital Course Hospital Course: #Acute ischemic stroke causing Acute onset headache, loss of vision in the right eye and unsteady gait-likely secondary to subacute ischemic infarct in the left occipital lobe in the posterior cerebral artery distribution #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 Was noted to have subacute ischemic infarct of the left occipital lobe in the posterior cerebral artery distribution, out of the window. Patient has bilateral right greater than left carotid artery stenosis At baseline, he has history of left eye glaucoma and can not see much (legally blind) in the left eye. [facility] He uses a walker at home where he lives by himself, and does not want to go to SNF after this hospital stay. Initial imaging revealed a subacute left occipital infarct on CT head. 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 He was initiated on DAPT aspirin and Plavix for 6 weeks (up to the end of September 2025) followed by aspirin alone , since he was statin naive statin was also initiated for secondary prevention of stroke. His blood pressure was high at around 170s and 180s for which we slowly decreased it to maintain normotension with up titrating his amlodipine with good effect. Further medical management for his hypotension to be done by the PCP. TTE unremarkable, troponinemia negative monitored on telemetry, electrolytes were checked. PT was evaluated the patient and he did not need any services. Continue DAPT aspirin and Plavix for 6 weeks followed by aspirin alone along with high statin dose initiation for secondary prevention of stroke. 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 Right: Significant greater than 80% right ICA stenosis. Suspect occluded right vertebral artery. Left: Mild less than 50% left ICA stenosis. Left ECA stenosis. Patent left vertebral artery. Vascular surgery would like cardiac clearance prior to surgery, would be requested through outpatient management. Patient has significant medical comorbidities which have high-risk and hence he is to get a dobutamine stress test, and cardiac catheterization possibly depending on the stress test an ischemic risk in outpatient setting. Cardiology we will follow-up with us in outpatient settings as he was seen by hand clerical verifier inpatient and further workup will be done outpatient. #Hypertensive urgency Patient was noted to have headache at home that he could not relieve himself and tried taking Tylenol Motrin without any relief. His headache is also suggestive of uncontrolled hypotension I have increased his amlodipine to 10 mg, continued lisinopril 30 mg daily, further medication needs to be adjusted by the primary care as the patient was normotensive with this medication. Hyperlipidemia-increase statins to 80 mg This note is constructed using voice recognition software. While every effort has been made to ensure accuracy, secondary education professor errors may have been included. Unintentional errors might have escaped proof reading, please do not hesitate to reach out for any further questions or concerns. Time Attestation Discharge Coordination Time (in mins): 65 Quality: Safe Use of Opioids Does Pt have an Active Cancer Diagnosis on the Problem List?: No Quality: Stroke Does the patient have a stroke diagnosis?: Yes Reason for No Anti-thrombotic at DC: N/A - Med Ordered Reason for No Anticoagulant at DC: Not indicated Reason Not Initiating IV-Tpa: Not indicated Reason for No Anti-thrombotic by Day Two: Not indicated Reason for No Statin at DC: N/A - Med Ordered Physical Exam Vital Signs: Vital Signs: Last Vital Signs Temp 98.6 F 09/11/25 11:12 Pulse 88 09/11/25 11:12 Resp 18 09/11/25 11:12 BP 117/56 L 09/11/25 11:12 Pulse Ox 97 09/11/25 11:12 O2 Del Method Room Air 09/11/25 11:12 BMI result Body Mass Index 24.2 Discharge Plan Discharge Anticipated Discharge Date/Time: 09/10/25 13:53 Patient Disposition: Home, Self-Care Discharge Diagnosis: Acute subacute ischemic infarct in the left occipital lobe in the posterior cerebral artery distribution Referrals: Glenn Falcon MD [Physician, Neurology] - 1 Week Dane Rock MD [Physician, Vascular Surgery] - 1 Week Josué Antony MD [Physician, Cardiology] - 1 Week Ethan Swan MD [Primary Care Provider, Internal Medicine] - 1 Week Discharge Medications: New clopidogrel 75 mg Tablet 75 mg PO DAILY 30 Days Qty: 30 3RF aspirin 81 mg Tablet,Delayed Release (Dr/Ec) 81 mg PO DAILY 30 Days Qty: 30 0RF atorvastatin 80 mg Tablet 80 mg PO BEDTIME 30 Days Qty: 30 3RF Continued ketoconazole 2 % Shampoo 1 appl TOPICAL 3XW amlodipine 5 mg Tablet 5 mg PO DAILY calcium carbonate 500 mg calcium (1,250 mg) Tablet 500 mg PO BEDTIME meclizine 25 mg Tablet 25 mg PO BID lisinopril 30 mg Tablet 30 mg PO DAILY fluticasone propionate 50 mcg/actuation [place],Suspension 1 spray INTRANASAL BID Rx Instructions: administer into each nostril dorzolamide 2 % Drops 1 drp OPHTHALMIC (EYE) BID Discharge Orders: Discharge Order (Routine); Ordered 09/11/25 Ordered By: Tasneem Blount Diet: Low salt diet Activity on Discharge: As tolerated Stand Alone Forms: Patient Portal Discharge page Print Language: [place] Care Plan Goals: Follow-up with outpatient Cardiology for cardiac clearance for your vascular surgery-carotid endarterectomy Follow up with vascular surgery outpatient in 2-3 weeks Follow up with PCP We have initiated aspirin and Plavix along with statin for secondary prevention of stroke Follow-up with outpatient PT You have severe right carotid stenosis which requires operative management for which we consulted vascular surgery and you will be seeing him in 2-3 weeks in outpatient settings Placed take your medications as prescribed-we have increased her medication amlodipine to 10 mg and your blood pressure was better on this medication. New medications this hospitalization : Aspirin 81 mg once a day Plavix 75 mg once a day orally Atorvastatin 80 mg once a day Amlodipine has been increased to 10 mg daily from 5 mg home dose Continue taking your other medications for other medical conditions Health Concerns: See above Plan of Treatment: See above Assessment: See above
== END 2025-09-11 13:00 | disposition home or self-care (01) | DRG 66 ==
LOC: HO.ED 19:44 → HO.EDOVER 20:35 → HO.IMC 09-09 15:35
PROVIDERS: Physician Assistant Medical; Admitting Provider Student in an Organized Health Care Education/Training Program; Emergency Provider Emergency Medicine; PCP Internal Medicine; Visit Provider Student in an Organized Health Care Education/Training Program
DX: I63.532 Cerebral infarction due to unspecified occlusion or stenosis of left posterior cerebral artery (principal); E78.5 Hyperlipidemia, unspecified; I16.0 Hypertensive urgency; I10 Essential (primary) hypertension; R29.702 NIHSS score 2; H54.61 Unqualified visual loss, right eye, normal vision left eye; I65.21 Occlusion and stenosis of right carotid artery; H54.62 Unqualified visual loss, left eye, normal vision right eye; H53.8 Other visual disturbances; Z79.899 Other long term (current) drug therapy
CPT/HCPCS: 36415; 70450; 70496; 70498; 80048; 80053; 80061; 83735; 84484; 85025; 85027; 85610; 93005; 93306; 93880; 97161; 97166; 97535; 99285; J1650; J2470; Q9967

== ENCOUNTER → 2025-09-08 17:23 | Outpatient (BNV) | payer MEDICARE, SELFPAY | PROVIDERS: Admitting Provider Student in an Organized Health Care Education/Training Program; Emergency Provider Emergency Medicine; PCP Internal Medicine; Visit Provider Internal Medicine Cardiovascular Disease | DX: R53.1 Weakness (principal) | CPT/HCPCS: 93010 ==

== ENCOUNTER → 2025-09-08 17:24 | Outpatient (BNV) | payer OTHER, SELFPAY | PROVIDERS: Emergency Provider Emergency Medicine; PCP Internal Medicine; Visit Provider Radiology Diagnostic Radiology | DX: I65.01 Occlusion and stenosis of right vertebral artery (principal); H53.8 Other visual disturbances; R51.9 Headache, unspecified | CPT/HCPCS: 70450; 70496; 70498 ==

== ENCOUNTER 2025-09-08 20:26 | Outpatient (BNV) | payer MEDICARE, SELFPAY | END 2025-09-09 07:00 | PROVIDERS: Admitting Provider Student in an Organized Health Care Education/Training Program; Emergency Provider Emergency Medicine; PCP Internal Medicine; Visit Provider Internal Medicine Cardiovascular Disease | DX: I34.81 Nonrheumatic mitral (valve) annulus calcification (principal); I35.8 Other nonrheumatic aortic valve disorders | CPT/HCPCS: 93306 ==

== ENCOUNTER 2025-09-08 20:26 | Outpatient (BNV) | payer MEDICARE, SELFPAY | END 2025-09-10 14:54 | PROVIDERS: Admitting Provider Student in an Organized Health Care Education/Training Program; Emergency Provider Emergency Medicine; PCP Internal Medicine; Visit Provider Radiology Diagnostic Radiology | DX: I65.23 Occlusion and stenosis of bilateral carotid arteries (principal) | CPT/HCPCS: 93880 ==

== ENCOUNTER → 2025-09-08 20:26 | Outpatient (BNV) | payer MEDICARE, SELFPAY | PROVIDERS: Admitting Provider Student in an Organized Health Care Education/Training Program; Emergency Provider Emergency Medicine; PCP Internal Medicine; Visit Provider Internal Medicine Cardiovascular Disease | DX: Z01.810 Encounter for preprocedural cardiovascular examination (principal) | CPT/HCPCS: 99222 ==

== ENCOUNTER → 2025-09-08 20:26 | Outpatient (BNV) | payer OTHER, SELFPAY | PROVIDERS: Admitting Provider Student in an Organized Health Care Education/Training Program; Emergency Provider Emergency Medicine; PCP Internal Medicine; Visit Provider Student in an Organized Health Care Education/Training Program | DX: H53.131 Sudden visual loss, right eye (principal) | CPT/HCPCS: 99232 ==

== ENCOUNTER → 2025-09-08 20:26 | Outpatient (BNV) | payer MEDICARE, SELFPAY | PROVIDERS: Admitting Provider Student in an Organized Health Care Education/Training Program; Emergency Provider Emergency Medicine; PCP Internal Medicine; Visit Provider Surgery Vascular Surgery | DX: I63.232 Cerebral infarction due to unspecified occlusion or stenosis of left carotid arteries (principal) | CPT/HCPCS: 99232 ==

== ENCOUNTER → 2025-09-08 20:26 | Outpatient (BNV) | payer MEDICARE, SELFPAY | PROVIDERS: Admitting Provider Student in an Organized Health Care Education/Training Program; Emergency Provider Emergency Medicine; PCP Internal Medicine; Visit Provider Psychiatry & Neurology Neurology | DX: I63.9 Cerebral infarction, unspecified (principal) | CPT/HCPCS: 99222 ==

== ENCOUNTER → 2025-10-02 09:08 | Outpatient (REF) | payer OTHER, SELFPAY ==
--- NOTE | ~2025-10-02 | NM_ITS ---
Dobutamine Myocardial perfusion study Indication: Preoperative cardiovascular examination Technique: The patient was brought in for a dobutamine perfusion study on 10/02/2025 and dobutamine was injected per protocol intravenously. Peak dose of 40 mcg/min. 25 mCi of sestamibi was given intravenously. Images were obtained using the SPECT gamma camera interlaced with the gating device. Images were obtained in supine position. Resting perfusion study was performed on 10/03/2025. Patient was administered 25 mCi of sestamibi intravenously at rest. Images were then obtained in supine position. Total DLP 59 mGy-cm. Images were processed with the software and compared side to side in short axis, horizontal long axis and vertical long axis views. Findings: Raw aquisition reviewed. The stress perfusion study showed decreased tracer uptake along the inferior wall. There is improvement with CT attenuation correction and hence could indicate components of diaphragmatic attenuation artifact. The gated study shows normal LV systolic function with calculated LVEF of 68%. LV cavity is normal in size. The gated study shows normal wall thickening and contraction of segments. Resting study shows diminished tracer uptake along the inferior wall. There is improvement with CT attenuation correction suggesting components of diaphragmatic attenuation artifact. Gating at rest reveals normal wall motion with ejection fraction at 74%. The findings are consistent with fixed inferior perfusion defect. No clear reversible defects. NM/NM cardiolite stress test Impression: 1. Myocardial perfusion imaging study shows no evidence of ischemia. Fixed inferior perfusion defect that could be related to diaphragmatic attenuation artifact, but cannot exclude prior nontransmural infarct. 2. Gated LVEF is 68% during stress and 74% during rest. 3. Transient ischemic dilatation not present. EKG component of the test reported separately. Electronically signed by: Pino Smith MD 10/03/2025 03:42 PM [facility]
--- NOTE | 2025-10-02 09:13 | CA_ITS ---
Acquisition Time: 2025-10-02 10:19:02 Total Exercise Time: 00:19:36 Test Indications: PREOP, HTN, HYPERLIPIDEMIA Medications: SEE H&P Protocol: DOBUTAMINE Max HR: 116 BPM 83% of Pred: 139 BPM Max BP: 140/38 mmHG Max Work Load: 1.0 METS Pharmacologcial stress test with Dobutamine infusion max dose of 40mcg/kg/hr, achieving 84% MPHR, with reports of SOB, no chest pain, with isolated PVCs, with normotenisve response to infusion. With borderline ST depression inferiorly mid infusion that improved and then later in recovery with ST depression inferioly and anterolaterally, suggestive for possible ischemia. In recovery, pt's breathing improved to baseline. In recovery, BP lowered to 80/40, hydrated with IVF 250cc after which BP improve to baseline. ST segment improved. Nuclear images pending. Test reviewed with Dr. Smith. Referred By: Josué Antony Electronically Signed By: Ajay Esteban
== END ==
LOC: HO.CARD 09:08
PROVIDERS: PCP Physician Assistant; Visit Provider Internal Medicine Cardiovascular Disease
DX: Z01.810 Encounter for preprocedural cardiovascular examination (principal); I63.9 Cerebral infarction, unspecified; H53.131 Sudden visual loss, right eye
CPT/HCPCS: 78452; 93017; A9500; J1250

== ENCOUNTER → 2025-10-02 09:13 | Outpatient (BNV) | payer OTHER, MEDICARE, SELFPAY | PROVIDERS: PCP Physician Assistant | DX: R94.31 Abnormal electrocardiogram [ECG] [EKG] (principal) | CPT/HCPCS: 78452; 93016; 93018 ==

== ENCOUNTER 2025-10-06 13:58 | Outpatient (AMB) | payer OTHER, MEDICARE, SELFPAY ==
--- NOTE | 2025-10-06 14:09 | MHC.OFFVIS ---
Intake Visit Reasons: stroke Allergies Penicillins Allergy (Verified 09/08/25 17:24) Anaphylaxis HPI Comments Details: This is a 80-year-old man with a history of hypertension and hyperlipidemia who had a moderate to large sized left [employer] ischemic infarct in Aug when he was admitted at [facility]. CTA also revealed bilateral vertebral artery atherosclerotic disease, and similar disease in extracranial ICAs (mod to severe on the right and mod on the left side). Transthoracic cardiac echo was ok and EKG revealed NSR. She is presenting for a neurology follow-up visit after a recent hospitalization for a stroke. 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 As a result, he is unable to see on his right side. He has a history of significant atherosclerotic disease affecting all four major vessels to the brain. This includes an occluded left vertebral artery, a stenosed right vertebral artery, moderate to severe right extracranial internal carotid artery stenosis, and mild to moderate left extracranial internal carotid artery stenosis. Imaging also shows moderate to severe diffuse cortical cerebral and cerebellar atrophy. The patient has a history of hyperlipidemia and previously stopped taking a statin medication due to leg cramps. He is currently taking baby aspirin and clopidogrel, as well as medication for blood pressure. He lives at home and is not driving due to his vision loss. [facility] Medical History HLD (hyperlipidemia) HTN (hypertension) Social History Household Members: None Housing: Apartment Do you presently have visiting nurse or other home services: No Patient Tobacco Use Status: Former Tobacco user service: Yes Review of Systems Narrative - Neurological: Reports a feeling of being drunk all the time. - Vision: Reports inability to see on his right side and seeing floaters. - Musculoskeletal: Reports a history of leg cramps while on statin medication. Physical Exam Neuro Other: Mental Status: Alert and oriented to person, place, and time. Normal attention. Normal spontaneous speech, fluency, and comprehension. Cranial Nerves: CN II: Right hemianopsia CN III, IV, : Pupils equal, round, reactive to light and accommodation. Extraocular movements are normal. CN V: Facial sensation is normal. CN VII: Facial movements symmetrical. CN VIII: Hearing intact to bedside conversation is normal. CN IX, X: Palate elevates symmetrically. CN XI: Shoulder shrug and head turn symmetrical. CN XII: Tongue midline without atrophy or fasciculations. Walking in a cautious gait Extrapyramidal: Full facial expressions and blinking. No rigidity. Movements are appropriate with no tremor or abnormality. Speech: Normal; no dysarthria or tremor. Assessment & Plan Assessment & Plan (1) Cerebral infarction: Comment: CT brain WO at [facility] in Aug 2025: Mod diff cortical cerebral and cerebellar atrophy, mod to large left [employer] subacute infarct CTA brain and neck at [facility] in Aug 2025: Occluded R verteb, attenuation of L [employer], Severe R ICA proximal stenosis, mod of L. NICS at [facility] in Aug 2025: 80% R and 50% L ICA stenosis Code(s): I63.9 - Cerebral infarction, unspecified Category: Medical Qualifiers: Cerebral infarction mechanism: thrombosis Precerebral and cerebral artery: posterior cerebral artery Laterality of affected vessel: left Qualified Code(s): I63.332 - Cerebral infarction due to thrombosis of left posterior cerebral artery (2) Vertebral artery stenosis with cerebral infarction: Code(s): I63.219 - Cerebral infarction due to unspecified occlusion or stenosis of unspecified vertebral artery Category: Medical Qualifiers: Laterality of affected vessel: bilateral Qualified Code(s): I63.213 - Cerebral infarction due to unspecified occlusion or stenosis of bilateral vertebral arteries (3) Carotid stenosis, bilateral: Code(s): I65.23 - Occlusion and stenosis of bilateral carotid arteries Category: Medical Plan Impression: 1. Left posterior cerebral artery ischemic cerebral infarction causing right hemianopsia in August of 2025 likely cause by atherothrombotic disease 2. Occluded right vertebral artery 3. [id number] right and [id number] left extracranial internal carotid artery stenosis. 4. Moderately severe diffuse cortical cerebral and cerebellar atrophy Recommendations: 1. Education about his overall situation. For now medical management is recommended. 2. Aspirin 81 mg daily +clopidogrel 75 mg daily 3. Atorvastatin 20 mg a day. He said that he had some problem with this type of medicines in the past and I would see if he would be able to tolerate smaller dose. 4. Blood pressure control 5. Repeat ultrasound in March or April of 2026. I educated the patient and his family member about his overall situation. I explained that his stroke was caused by a blockage of the left vertebral artery, which has resulted in vision loss on his right side. I reviewed the findings of extensive atherosclerosis in all four major blood vessels supplying the brain, including total blockage of one vertebral artery, stenosis in another, and varying degrees of stenosis in both carotid arteries. We discussed that while surgical intervention on the significantly blocked carotid artery is a technical possibility, I recommend aggressive medical management at this time due to his age and the recent stroke. The plan includes continuing dual antiplatelet therapy with aspirin and clopidogrel, maintaining blood pressure control, and initiating a low-dose statin, atorvastatin 20 mg, to be monitored for tolerance. I strongly advised against driving due to his visual field defect. I set the expectation that recovery and adaptation to his visual and balance symptoms will take time, possibly six months or more. I instructed him to call 911 immediately if any new stroke-like symptoms occur. We will plan for a repeat ultrasound in April 2026 to ensure stability, with a follow-up visit in a few months. Medications: New atorvastatin (Lipitor) 20 mg PO BEDTIME 90 tabs 0RF Discontinued atorvastatin Discontinued Reason: Doctor's Order 80 mg PO BEDTIME 30 days 30 tabs 3RF Coding Level of Care Code Est Pt Level 5 (91465) Diagnoses Cerebral infarction due to thrombosis of left posterior cerebral artery I63.332 Cerebral infarction mechanism: thrombosis Precerebral and cerebral artery: posterior cerebral artery Laterality of affected vessel: left Cerebral infarction due to bilateral stenosis of vertebral arteries I63.213 Laterality of affected vessel: bilateral Carotid stenosis, bilateral I65.23 Time Spent (min) 45
== END 2025-10-06 14:31 | disposition home or self-care (01) ==
LOC: HO.HSM 13:59
PROVIDERS: PCP Physician Assistant; Visit Provider Psychiatry & Neurology Neurology
DX: I63.332 Cerebral infarction due to thrombosis of left posterior cerebral artery (principal); I63.213 Cerebral infarction due to unspecified occlusion or stenosis of bilateral vertebral arteries; I65.23 Occlusion and stenosis of bilateral carotid arteries
CPT/HCPCS: 99215

== ENCOUNTER → 2025-10-06 13:58 | Outpatient (BNVA) | payer OTHER, MEDICARE, SELFPAY | PROVIDERS: PCP Physician Assistant; Visit Provider Psychiatry & Neurology Neurology | DX: I65.23 Occlusion and stenosis of bilateral carotid arteries (principal); I63.332 Cerebral infarction due to thrombosis of left posterior cerebral artery | CPT/HCPCS: 99212 ==

== ENCOUNTER 2025-10-14 14:11 | Outpatient (AMB) | payer MEDICARE, SELFPAY ==
--- NOTE | 2025-10-14 14:14 | A.OFFVIS_ITS ---
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 The patient was recently hospitalized, where a CT scan of the neck revealed a high-grade blockage of the right carotid artery, estimated at 90-99% stenosis. A subsequent ultrasound confirmed there is still blood flow through the vessel. The left carotid artery has 60-70% stenosis. 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 He also reports eye floaters. He reports a history of a stroke, which he was unaware of when it occurred. His current medications include Plavix, baby aspirin, and a statin.. He denies a history of diabetes. He is a nonsmoker. Of note he is able to climb a flight of stairs with no significant difficulty. [facility] Medical History HLD (hyperlipidemia) HTN (hypertension) Social History Household Members: None Housing: Apartment Do you presently have visiting nurse or other home services: No Patient Tobacco Use Status: Former Tobacco user service: Yes Review of Systems Const All systems reviewed & are unremarkable except as noted in HPI and below Reports no additional complaints ENT Reports Normal hearing present Card Denies chest pain, Denies chest pain at rest, Denies chest pain with activity and Denies pedal edema Resp Denies cough GI Denies abdominal pain Musc Denies abnormal gait, Denies muscle cramps and Denies radiating pain into limb Skin/Breast Denies skin ulcer and Denies wounds Neuro Reports Normal hearing present and Denies abnormal gait Psych Reports no additional complaints Physical Exam Const General: cooperative, healthy appearing and comfortable Orientation/consciousness: oriented to person, oriented to place and oriented to time HEENT Head: Yes normal to inspection Neck Neck: Yes normal visual inspection Carotids: no bruits Chest Chest palpation & inspection: normal inspection of the chest Resp Effort & Inspection: normal respiratory effort and able to speak in complete sentences Auscultation: clear to auscultation bilaterally, no crackles, no rales, no rhonchi and no wheezes Cardio Rate: regular rate Rhythm: regular rhythm Heart sounds: S1 normal heart sound present and S2 normal heart sound present Bruits: no carotid bruits Peripheral pulses: Peripheral pulses 2+ throughout GI Inspection: Yes normal to inspection Skin Wounds: no wounds Hair: normal Neuro General: oriented to person, oriented to place and oriented to time Cranial nerves: Yes CN's II-XII intact bilaterally and Yes Normal hearing present Cognition (Neuro): normal cognition Motor exam (neuro): 5/5 motor strength present throughout Extrem Other: venous exam: No significant superficial varicosities or spider telangiectasias, minimal edema General: No clubbing, No cyanosis and No edema Psych Appearance: grossly normal Mental Status: mental status grossly normal Speech and movement: Normal speech and movement present Results Reviewed Results Reviewed: Carotid ultrasound and CT angiogram demonstrates high-grade stenosis of the right and left 60-70% stenosis. Written report and images were reviewed. Assessment & Plan Assessment & Plan (1) Carotid stenosis, right: Code(s): I65.21 - Occlusion and stenosis of right carotid artery Category: Medical Plan: In short patient has high-grade right carotid stenosis. He has near occlusive. We did try to expedite his overall care unfortunately there was some delays on cardiology testing end. We will schedule as soon as possible. Patient will require right carotid endarterectomy. Risks benefits complications including but not limited to bleeding infection stroke and were discussed in detail with the patient. He understood and consented and would like to move forward. Thank you for allowing us to assist in his care. If there are any questions or concerns please do not hesitate to contact us. Coding Level of Care Code Est Pt Level 4 (48186) Diagnoses Carotid stenosis, right I65.21
== END 2025-10-14 15:13 | disposition home or self-care (01) ==
LOC: HO.HVS 14:12
PROVIDERS: PCP Physician Assistant; Visit Provider Surgery Vascular Surgery
DX: I65.21 Occlusion and stenosis of right carotid artery (principal)
CPT/HCPCS: 99214

== ENCOUNTER → 2025-10-14 14:11 | Outpatient (BNVA) | payer OTHER, SELFPAY | PROVIDERS: PCP Physician Assistant; Visit Provider Surgery Vascular Surgery | DX: I65.21 Occlusion and stenosis of right carotid artery (principal) | CPT/HCPCS: 99212 ==